=== PATIENT | female | born 1980 | race Caucasian/White ===

== ENCOUNTER 2019-01-06 02:38 | Emergency (ER) | payer MEDICAID ==
[2019-01-06 03:34] LABS: ANION GAP 13.4; CHLORIDE,CL 102 mmol/L (101-111); SODIUM,NA 135 mmol/L (135-145)
[2019-01-06] MEDS ORDERED: Sodium Chloride 0.9% 1,000 ML IV ONE (03:40)
--- NOTE | 2019-01-06 04:48 | EDM.PDOC ---
<Roxanne Guzman - Last Filed: 01/06/19 07:00> ED HPI GENERAL MEDICAL PROBLEM - General Chief Complaint: General Stated Complaint: FACE IS SWOLLEN AND LIGHT HEADED Time Seen by Provider: 01/06/19 03:00 Source of Information: Reports: Patient History Limitations: Reports: No Limitations - History of Present Illness INITIAL COMMENTS - FREE TEXT/NARRATIVE: ED with c/o facial swelling starting today on left side, tonight while finishing work got dizzy and had to sit down, later, felt dizzy while driving home. No recent fever or chills. No cough or cold symptoms, No dental pain. Has been anemic in past from heavy periods. LMP one week ago. - Related Data Allergies Allergy/AdvReac Type Severity Reaction Status Date / Time amoxicillin Allergy Other Verified 01/06/19 06:48 Sulfa (Sulfonamide Allergy Swelling Verified 01/06/19 06:48 Antibiotics) Home Meds: Home Meds . [No Known Home Meds] 01/06/19 [History] Past Medical History Genitourinary History: Reports: Other (See Below) Other Genitourinary History: Pt reports "a kidney issue" when she was a kid. 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 Social & Family History - Tobacco Use Smoking Status *Q: Current Every Day Smoker Years of Tobacco use: 20 Packs/Tins Daily: 0.5 - Caffeine Use Caffeine Use: Reports: Tea Caffeine Use Comment: 2 Herbalife teas daily. - Recreational Drug Use Recreational Drug Use: No ED ROS GENERAL - Review of Systems Review Of Systems: ROS reveals no pertinent complaints other than HPI. Constitutional: Denies: Fever, Chills, Weakness HEENT: Denies: Sinus Problem ED EXAM, GENERAL - Physical Exam Exam: See Below Exam Limited By: No Limitations General Appearance: Alert, Anxious, Mild Distress Eye Exam: Bilateral Eye: EOMI, Normal Fundi, PERRL Ears: Normal External Exam Ear Exam: Bilateral Ear: Auricle Normal, Canal Normal, TM normal Nose: Normal Inspection Throat/Mouth: Normal Inspection Head: Atraumatic, Normocephalic, Facial Swelling (left lower orbital and cheek) Neck: Normal Inspection Respiratory/Chest: No Respiratory Distress, Lungs Clear, Normal Breath Sounds Cardiovascular: Normal Peripheral Pulses, Regular Rate, Rhythm, Tachycardia GI/Abdominal: Normal Bowel Sounds Back Exam: Normal Inspection Extremities: Normal Inspection, Normal Range of Motion Neurological: Alert, Oriented, Normal Cognition, Normal Gait, Normal Reflexes Psychiatric: Normal Affect Skin Exam: Warm, Dry, Intact, Normal Color Course - Vital Signs Last Recorded V/S: Last Vital Signs Temp 37.0 C 01/06/19 09:00 Pulse 96 01/06/19 09:00 Resp 20 01/06/19 09:00 BP 107/66 01/06/19 09:00 Pulse Ox 93 L 01/06/19 07:01 Orthostatic Blood Pressure [ 148/94 Supine] - Orders/Labs/Meds Orders: Active Orders 24 hr Category Date Time Status Orthostatic Vital Signs [RC] ASDIRECTED Care 01/06/19 03:01 Active Labs: Laboratory Tests 01/06/19 01/06/19 01/06/19 Range/Units 03:08 03:08 03:08 WBC 9.8 (5.0-10.0) 10^3/uL RBC 4.89 (4.2-5.4) 10^6/uL Hgb 7.0 L (12.0-16.0) g/dL Hct 25.2 L (37.0-47.0) % MCV 51.5 L (80-100) fL MCH 14.3 L (27.0-34.0) pg MCHC 27.8 L (33.0-35.0) g/dL Plt Count 319 (150-450) 10^3/uL Neut % (Auto) 70.0 (42.2-75.2) % Lymph % (Auto) 21.2 (20.5-50.1) % [place] % (Auto) 6.9 (2-8) % Eos % (Auto) 1.5 (1.0-3.0) % Baso % (Auto) 0.4 (0.0-1.0) % Sodium 135 (135-145) mmol/L Potassium 3.4 L (3.6-5.0) mmol/L Chloride 102 (101-111) mmol/L Carbon Dioxide 23.0 (21.0-31.0) mmol/L Anion Gap 13.4 BUN 12 (7-18) mg/dL Creatinine 0.7 (0.6-1.3) mg/dL Est Cr Clr Drug Dosing 109.92 mL/min Estimated GFR (MDRD) > 60 BUN/Creatinine Ratio 17.14 Glucose 102 (74-105) mg/dL Calcium 8.7 (8.4-10.2) mg/dl Total Bilirubin 0.7 (0.2-1.0) mg/dL AST 22 (10-42) IU/L ALT 18 (10-60) IU/L Alkaline Phosphatase 52 (42-121) IU/L Total Protein 7.3 (6.7-8.2) g/dl Albumin 4.1 (3.2-5.5) g/dl Globulin 3.2 Albumin/Globulin Ratio 1.28 TSH, Ultra Sensitive 1.68 (0.45-5.33) uIu/mL HCG, Qual Negative Blood Type Gel Antibody Screen Crossmatch 01/06/19 Range/Units 03:18 WBC (5.0-10.0) 10^3/uL RBC (4.2-5.4) 10^6/uL Hgb (12.0-16.0) g/dL Hct (37.0-47.0) % MCV (80-100) fL MCH (27.0-34.0) pg MCHC (33.0-35.0) g/dL Plt Count (150-450) 10^3/uL Neut % (Auto) (42.2-75.2) % Lymph % (Auto) (20.5-50.1) % [place] % (Auto) (2-8) % Eos % (Auto) (1.0-3.0) % Baso % (Auto) (0.0-1.0) % Sodium (135-145) mmol/L Potassium (3.6-5.0) mmol/L Chloride (101-111) mmol/L Carbon Dioxide (21.0-31.0) mmol/L Anion Gap BUN (7-18) mg/dL Creatinine (0.6-1.3) mg/dL Est Cr Clr Drug Dosing mL/min Estimated GFR (MDRD) BUN/Creatinine Ratio Glucose (74-105) mg/dL Calcium (8.4-10.2) mg/dl Total Bilirubin (0.2-1.0) mg/dL AST (10-42) IU/L ALT (10-60) IU/L Alkaline Phosphatase (42-121) IU/L Total Protein (6.7-8.2) g/dl Albumin (3.2-5.5) g/dl Globulin Albumin/Globulin Ratio TSH, Ultra Sensitive (0.45-5.33) uIu/mL HCG, Qual Blood Type B POSITIVE Gel Antibody Screen Negative Crossmatch See Detail Meds: Medications Discontinued Medications Generic Name Dose Route Start Last Admin Trade Name Chavoq PRN Reason Stop Dose Admin Amoxicillin/Clavulanate Potassium 1 tab 01/06/19 06:07 01/06/19 06:49 Augmentin 875 Mg/125 Mg PO 01/06/19 06:08 Not Given ONETIME ONE Clindamycin HCl 300 mg 01/06/19 06:46 Cleocin PO 01/06/19 06:47 ONETIME ONE Sodium Chloride 1,000 mls @ 999 mls/hr 01/06/19 03:40 01/06/19 03:58 Normal Saline IV 01/06/19 04:40 999 mls/hr .BOLUS ONE Administration Departure - Departure Disposition: Home, Self-Care 01 Clinical Impression: Cellulitis, face Anemia Qualifiers: Anemia type: unspecified type Qualified Code(s): D64.9 - Anemia, unspecified - Discharge Information Instructions: Cellulitis, Adult, [id number], Blood Transfusion, Adult, Care After, [id number] Forms: ED Department Discharge Care Plan Goals: The patient was advised of the examination, lab and CT results. The patient was given 1 unit of blood for anemia while in the ED. The patient was given an oral dose of Clindamycin while in the ED for Cellulitis. The patient was discharged with a script for Clindamycin (150 mg) to take 2 by mouth every 6 hours for 10 days. The patient should follow-up with her primary care facility for continued evaluation and further management in approximately 1 week. If the patient has any additional symptoms or concerns, the patient should either return to the emergency department or visit her primary care facility. <Gabriel Smith - Last Filed: 01/06/19 09:47> Course - Re-Assessments/Exams Free Text/Narrative Re-Assessment/Exam: 01/06/19 09:36 Patient care was taken over at shift change. Reviewed assessment, lab and CT results. The patient was receiving 1 unit of blood at shift change for anemia. An order was placed for 300 mg of Clindamycin was placed for Cellulitis prior to my patient involvement. Departure - Departure Time of Disposition: 10:00 Condition: Fair - Discharge Information *PRESCRIPTION DRUG MONITORING PROGRAM REVIEWED*: Not Applicable *COPY OF PRESCRIPTION DRUG MONITORING REPORT IN PATIENT WILLIAMS: Not Applicable
[2019-01-06] MEDS ORDERED: Amoxicillin/Clavulanate K 875-125 MG Tab PO ONE (06:07)
[2019-01-06] MEDS ORDERED: Clindamycin HCl 150 MG Cap PO ONE (06:46)
== END 2019-01-06 10:07 | disposition home or self-care (01) ==
LOC: DL.ED 02:38
DX: L03.211 Cellulitis of face (principal); F17.210 Nicotine dependence, cigarettes, uncomplicated; Z88.0 Allergy status to penicillin; Z88.2 Allergy status to sulfonamides
CPT/HCPCS: 36415; 36430; 70450; 70486; 80053; 84443; 84703; 85025; 86850; 86900; 86901; 86920; 86922; 96360; 99284; A9270; J7030; P9016; 99283

== ENCOUNTER 2019-01-06 23:01 | Inpatient (IN) | payer MEDICAID ==
[2019-01-07 00:03] LABS: ANION GAP 11.5; CHLORIDE,CL 106 mmol/L (101-111); SODIUM,NA 138 mmol/L (135-145)
[2019-01-07] MEDS ORDERED: Ondansetron 4 MG/2 ML SDV IVPUSH PRN (00:42)
[2019-01-07] MEDS ORDERED: Zolpidem 5 MG Tab PO PRN (00:42)
--- NOTE | 2019-01-07 00:59 | PCM.HP ---
H&P History of Present Illness - General Date of Service: 01/07/19 Admit Problem/Dx: Admission Diagnosis/Problem Admission Diagnosis/Problem Cellulitis of face Source of Information: Patient History Limitations: Reports: No Limitations - History of Present Illness Initial Comments - Free Text/Narative: 38-year-old female with past medical history anemia, irregular menstrual periods , remote meth abuse who presented to emergency room for left facial swelling started last Saturday night and gradually got worse. Early Saturday morning she was feeling lightheaded and dizzy so she came to emergency room and she was found to have hemoglobin of 7. She was given IV antibiotic and prescription for antibiotics taken. However she said she slept all day and her facial swelling, redness, and pain was getting worse so she came back to emergency room. She denies fever or chills but admitted sweats. She moved from [place]. She said she is used to hemoglobin of 7, stating that she has aren't deficiency anemia and heavy periods. Her periods finished last and lasted for 6 days. She said her menstrual period is usually heavy. It comes every 4-6 weeks. Patient denies change in vision, pain with eye movement, runny nose, sore throat, difficulty breathing, difficulty swallowing except from difficulty completely opening the mouth due to pain, chest pain, abdominal pain, diarrhea, urinary symptoms, vaginal discharge, bruise, any other symptoms or concern Left Face/Facial Pain Score (Numeric/FACES): 5 - Related Data Allergies/Adverse Reactions: Allergies Allergy/AdvReac Type Severity Reaction Status Date / Time amoxicillin Allergy Other Verified 01/06/19 06:48 Sulfa (Sulfonamide Allergy Swelling Verified 01/06/19 06:48 Antibiotics) Home Medications: Home Meds . [No Known Home Meds] 01/06/19 [History] Past Medical History Genitourinary History: Reports: Other (See Below) Other Genitourinary History: Pt reports "a kidney issue" when she was a kid. 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 Social & Family History - Caffeine Use Caffeine Use: Reports: Tea Caffeine Use Comment: 2 Herbalife teas daily. H&P Review of Systems - Review of Systems: Review Of Systems: ROS reveals no pertinent complaints other than HPI. Exam - Exam Exam: See Below - Vital Signs Vital Signs: Last Vital Signs Temp 37.1 C 01/06/19 23:08 Pulse 94 01/06/19 23:08 Resp 18 01/06/19 23:08 BP 115/67 01/06/19 23:08 Pulse Ox 96 01/06/19 23:08 Weight: 72.393 kg - Exam General: Alert, Oriented, Cooperative. No: Mild Distress, Moderate Distress, Severe Distress, Sedated, Lethargic HEENT: Conjunctiva Clear, EOMI, Hearing Intact, Mucosa Moist & [place], Pupils Equal, Pupils Reactive, Other (Patient had significant left facial swelling, redness, and tenderness mostly in the cheek and extends to periorbital area. She has poor dentition and left upper molar caries and gingival swelling and tenderness. She is able to open her mouth about 1 finger and a half but not more due to pain. Her throat is patent. No stridor) Neck: Supple, Trachea Midline Lungs: Clear to Auscultation, Normal Respiratory Effort. No: Decreased Breath Sounds Cardiovascular: Regular Rate, Regular Rhythm GI/Abdominal Exam: Normal Bowel Sounds, Soft, Non-Tender, No Organomegaly, No Distention (Female) Exam: Deferred Rectal (Female) Exam: Deferred Back Exam: Normal Inspection, Full Range of Motion Extremities: Normal Inspection, Normal Range of Motion, Non-Tender, No Pedal Edema, Normal Capillary Refill Skin: Warm, Dry, Intact Neurological: Cranial Nerves Intact Neuro Extensive - Mental Status: Alert, Oriented x3, Normal Mood/Affect Psychiatric: Alert, Normal Affect, Normal Mood - Patient Data Lab Results Last 24 hrs: Laboratory Results - last 24 hr 01/06/19 01/06/19 01/06/19 Range/Units 23:34 23:34 23:34 WBC 10.1 H (5.0-10.0) 10^3/uL RBC 5.30 (4.2-5.4) 10^6/uL Hgb 8.5 L D (12.0-16.0) g/dL Hct 29.3 L (37.0-47.0) % MCV 55.3 L D (80-100) fL MCH 16.0 L (27.0-34.0) pg MCHC 29.0 L (33.0-35.0) g/dL Plt Count 259 (150-450) 10^3/uL Neut % (Auto) 68.2 (42.2-75.2) % Lymph % (Auto) 21.5 (20.5-50.1) % [place] % (Auto) 8.8 H (2-8) % Eos % (Auto) 1.2 (1.0-3.0) % Baso % (Auto) 0.3 (0.0-1.0) % Sodium 138 (135-145) mmol/L Potassium 3.5 L (3.6-5.0) mmol/L Chloride 106 (101-111) mmol/L Carbon Dioxide 24.0 (21.0-31.0) mmol/L Anion Gap 11.5 BUN 8 (7-18) mg/dL Creatinine 0.6 (0.6-1.3) mg/dL Est Cr Clr Drug Dosing 119.01 mL/min Estimated GFR (MDRD) > 60 BUN/Creatinine Ratio 13.33 Glucose 108 H (74-105) mg/dL Lactic Acid 0.7 (0.5-2.2) mmol/L Calcium 8.6 (8.4-10.2) mg/dl Total Bilirubin 0.7 (0.2-1.0) mg/dL AST 18 (10-42) IU/L ALT 15 (10-60) IU/L Alkaline Phosphatase 51 (42-121) IU/L C-Reactive Protein (0.0-1.3) mg/dL Total Protein 6.9 (6.7-8.2) g/dl Albumin 3.7 (3.2-5.5) g/dl Globulin 3.2 Albumin/Globulin Ratio 1.16 01/06/ Range/Units 23:34 WBC (5.0-10.0) 10^3/uL RBC (4.2-5.4) 10^6/uL Hgb (12.0-16.0) g/dL Hct (37.0-47.0) % MCV (80-100) fL MCH (27.0-34.0) pg MCHC (33.0-35.0) g/dL Plt Count (150-450) 10^3/uL Neut % (Auto) (42.2-75.2) % Lymph % (Auto) (20.5-50.1) % [place] % (Auto) (2-8) % Eos % (Auto) (1.0-3.0) % Baso % (Auto) (0.0-1.0) % Sodium (135-145) mmol/L Potassium (3.6-5.0) mmol/L Chloride (101-111) mmol/L Carbon Dioxide (21.0-31.0) mmol/L Anion Gap BUN (7-18) mg/dL Creatinine (0.6-1.3) mg/dL Est Cr Clr Drug Dosing mL/min Estimated GFR (MDRD) BUN/Creatinine Ratio Glucose (74-105) mg/dL Lactic Acid (0.5-2.2) mmol/L Calcium (8.4-10.2) mg/dl Total Bilirubin (0.2-1.0) mg/dL AST (10-42) IU/L ALT (10-60) IU/L Alkaline Phosphatase (42-121) IU/L C-Reactive Protein 1.3 (0.0-1.3) mg/dL Total Protein (6.7-8.2) g/dl Albumin (3.2-5.5) g/dl Globulin Albumin/Globulin Ratio Result Diagrams: 01/06/19 23:34 01/06/19 23:34 - Problem List (1) Irregular menses SNOMED Code(s): 14744200 ICD Code: N92.6 - IRREGULAR MENSTRUATION, UNSPECIFIED Status: Acute Current Visit: Yes (2) Anemia SNOMED Code(s): 667773873 ICD Code: D64.9 - ANEMIA, UNSPECIFIED Status: Acute Priority: High Current Visit: No Qualifiers: Anemia type: unspecified type Qualified Code(s): D64.9 - Anemia, unspecified (3) Cellulitis, face SNOMED Code(s): 675723738 ICD Code: L03.211 - CELLULITIS OF FACE Status: Acute Priority: High Current Visit: No Problem List Initiated/Reviewed/Updated: Yes Orders Last 24hrs: Active Orders 24 hr Category Date Time Status Admission Diagnosis [ADT] Stat ADT 01/07/19 00:22 Ordered Admission Status [Patient Status] [ADT] Routine ADT 01/07/19 00:22 Active Intake and Output [RC] QSHIFT Care 01/07/19 00:42 Active Notify Provider Vital Signs [RC] ASDIRECTED Care 01/07/19 00:42 Active Oxygen Therapy [RC] PRN Care 01/07/19 00:42 Active Up ad Lorie [RC] ASDIRECTED Care 01/07/19 00:42 Active VTE/DVT Education [RC] PER UNIT ROUTINE Care 01/07/19 00:42 Active Vital Signs [RC] Q4H Care 01/07/19 00:42 Active Regular Diet [DIET] Diet 01/07/19 Breakfast Active BASIC METABOLIC PANEL,BMP [CHEM] AM Lab 01/07/19 05:11 Ordered C-REACTIVE PROTEIN [REF] AM Lab 01/07/19 05:11 Ordered CBC WITH AUTO DIFF [HEME] AM Lab 01/07/19 05:11 Ordered CULTURE BLOOD [BC] Stat Lab 01/06/19 23:34 Received CULTURE BLOOD [BC] Stat Lab 01/07/19 00:46 Ordered HCG QUALITATIVE,URINE [URCHEM] Stat Lab 01/07/19 00:42 Ordered Acetaminophen [Tylenol] Med 01/07/19 00:42 Ordered 650 mg PO Q4H PRN Acetaminophen/HYDROcodone [[place] 325-10 MG] Med 01/07/19 00:42 Ordered 1 tab PO Q4H PRN Clindamycin Phosphate [Cleocin] 600 mg Med 01/07/19 01:00 Ordered Sodium Chloride 0.9% [Normal Saline] 100 ml IV Q6H Heparin Sodium Med 01/07/19 06:00 Ordered 5,000 units SUBCUT Q8HR Morphine Med 01/07/19 00:42 Ordered 2 mg IVPUSH Q2H PRN Ondansetron [Zofran] Med 01/07/19 00:42 Ordered 4 mg IVPUSH Q6H PRN Sodium Chloride 0.9% [Normal Saline] 1,000 ml Med 01/07/19 00:45 Ordered IV ASDIRECTED Zolpidem [Ambien] Med 01/07/19 00:42 Ordered 5 mg PO BEDTIME PRN Resuscitation Status Routine Resus Stat 01/07/19 00:42 Ordered Medication Orders Acetaminophen (Tylenol) 650 mg PO Q4H PRN PRN Reason: Pain (Mild 1-3)/fever Hydrocodone Bitart/Acetaminophen ([place] 325-10 Mg) 1 tab PO Q4H PRN PRN Reason: Pain (moderate 4-6) Heparin Sodium (Porcine) (Heparin Sodium) 5,000 units SUBCUT Q8HR [facility] Clindamycin Phosphate 600 mg/ (Sodium Chloride) 104 mls @ 200 mls/hr IV Q6H [facility] Sodium Chloride (Normal Saline) 1,000 mls @ 125 mls/hr IV ASDIRECTED [facility] Stop: 01/08/19 08:44 Morphine Sulfate (Morphine) 2 mg IVPUSH Q2H PRN PRN Reason: Pain (severe 7-10) Ondansetron HCl (Zofran) 4 mg IVPUSH Q6H PRN PRN Reason: Nausea/Vomiting Zolpidem Tartrate (Ambien) 5 mg PO BEDTIME PRN PRN Reason: Sleep Assessment/Plan Comment:: 38-year-old female with past medical history anemia, irregular menstrual periods , remote meth abuse who presented to emergency room for left facial swelling started last Saturday night and gradually got worse. Early today she was found to have hemoglobin of 7 and had 1 unit of RBC in ER and was sent home on antibiotics for her facial infection but she did not take it because she was not feeling well. On admission her WBC 10.1 K. Heart rate 94. Temperature blood pressure normal. #Facial cellulitis Most likely from dental infection -Clindamycin 600 mg IV every 6 hours. Patient is allergic to -Full liquid diet -1 blood culture ordered emergency room. I'm ordering another blood culture #Dental caries -Patient was advised to follow-up with the dentist as soon as possible after discharge #Anemia No active bleeding -Status post 1 unit of RBC on 01/06/19 -Monitor hemoglobin -I order reticulocyte, iron panel, folate and vitamin B-12 levels, haptoglobin, LDH. She was advised to let her primary care doctor know about following up with the blood work in case we don't get the results back before she gets discharged -I advised patient to follow-up with primary care provider and see lithoplate maker. She denies seeing lithoplate maker in the past #Irregular menses Urine test negative earlier today. -We discussed the need to follow up with truck railroad and bus motor mechanic as soon as possible after discharge #History of meth use -Urine drug screen ordered #Tobacco abuse Patient smokes half pack per day. She was counseled to quit smoking and discussed smoking cessation with the family care provider. She declines nicotine patch at this time DVT ppx: heparin Code status: Full
[2019-01-07] MEDS: Sodium Chloride 0.9% 1,000 ML IV SCH ×2 (01:54→10:58)
[2019-01-07] MEDS: Clindamycin Phosphate 600 MG in Sodium Chloride 0.9% 100 ML IV SCH ×5 (01:55→23:52)
[2019-01-07] MEDS: Morphine 2 MG/ML Syringe IVPUSH PRN ×2 (01:56→06:38)
--- NOTE | 2019-01-07 02:12 | EDM.PDOC ---
ED HPI GENERAL MEDICAL PROBLEM - General Chief Complaint: General Stated Complaint: FACE IS DROOPING Time Seen by Provider: 01/06/19 23:10 Source of Information: Reports: Patient History Limitations: Reports: No Limitations - History of Present Illness INITIAL COMMENTS - FREE TEXT/NARRATIVE: ED with c/o increased facial swelling. Slept most of today, poor appetited, Now some pain abdove left front teeth. Unsure if fever. 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 Patient seen early am hours with onset of painless facial swelling and found to have low Hgb. Recieved antibiotic and tranfused 1 unit PRBC. Left Face/Facial Pain Score (Numeric/FACES): 5 - Related Data Allergies Allergy/AdvReac Type Severity Reaction Status Date / Time amoxicillin Allergy Other Verified 01/06/19 06:48 Sulfa (Sulfonamide Allergy Swelling Verified 01/06/19 06:48 Antibiotics) Home Meds: Home Meds . [No Known Home Meds] 01/06/19 [History] Past Medical History Genitourinary History: Reports: Other (See Below) Other Genitourinary History: Pt reports "a kidney issue" when she was a kid. FLIGHT FOLLOWER History: Reports: Other (See Below) Other FLIGHT FOLLOWER History: Excessive vaginal bleeding leading to anemia. Social & Family History - Family History Family Medical History: Noncontributory - Tobacco Use Smoking Status *Q: Never Smoker Second Hand Smoke Exposure: No - Caffeine Use Caffeine Use: Reports: Tea Caffeine Use Comment: 2 Herbalife teas daily. - Recreational Drug Use Recreational Drug Use: No ED ROS GENERAL - Review of Systems Review Of Systems: ROS reveals no pertinent complaints other than HPI. ED EXAM, GENERAL - Physical Exam Exam: See Below Exam Limited By: No Limitations General Appearance: Alert, Moderate Distress Eye Exam: Bilateral Eye: EOMI, PERRL Ears: Normal External Exam Ear Exam: Bilateral Ear: TM normal Nose: Normal Inspection Throat/Mouth: Other (dentation fair, moderate pain with plapation over left front and left inscisor) Head: Atraumatic, Normocephalic Neck: Normal Inspection, Full Range of Motion Respiratory/Chest: No Respiratory Distress, Lungs Clear, Normal Breath Sounds Cardiovascular: Normal Peripheral Pulses, Regular Rate, Rhythm GI/Abdominal: Normal Bowel Sounds, Soft, Non-Tender, No Organomegaly, No Distention Back Exam: Normal Inspection, Full Range of Motion Extremities: Normal Inspection, Normal Range of Motion, Non-Tender, No Pedal Edema, Normal Capillary Refill Neurological: Alert, Oriented, Normal Cognition Psychiatric: Normal Affect, Normal Mood Skin Exam: Warm, Dry, Intact, Normal Color Course - Vital Signs Last Recorded V/S: Last Vital Signs Temp 98.5 F 01/08/19 00:03 Pulse 79 01/08/19 00:03 Resp 18 01/08/19 00:03 BP 113/76 01/08/19 00:03 Pulse Ox 96 01/08/19 00:42 - Orders/Labs/Meds Orders: Medication Orders Acetaminophen (Tylenol) 650 mg PO Q4H PRN PRN Reason: Pain (Mild 1-3)/fever Hydrocodone Bitart/Acetaminophen ([place] 325-10 Mg) 1 tab PO Q4H PRN PRN Reason: Pain (moderate 4-6) Last Admin: 01/07/19 21:20 Dose: 1 tab Admin: 01/07/19 17:32 Dose: 1 tab Heparin Sodium (Porcine) (Heparin Sodium) 5,000 units SUBCUT Q8HR [facility] Last Admin: 01/08/19 05:58 Dose: Not Given Admin: 01/07/19 21:09 Dose: Not Given Admin: 01/07/19 13:18 Dose: Not Given Admin: 01/07/19 06:39 Dose: 5,000 units Sodium Chloride (Normal Saline) 1,000 mls @ 125 mls/hr IV ASDIRECTED [facility] Stop: 01/08/19 08:44 Last Infusion: 01/07/19 18:58 Dose: 125 mls/hr Admin: 01/07/19 10:58 Dose: 125 mls/hr Infusion: 01/07/19 10:48 Dose: 125 mls/hr Admin: 01/07/19 01:54 Dose: 125 mls/hr Clindamycin Phosphate 600 mg/ (Sodium Chloride) 104 mls @ 200 mls/hr IV Q6HR [facility] Last Admin: 01/08/19 05:54 Dose: 200 mls/hr Admin: 01/07/19 23:52 Dose: 200 mls/hr Admin: 01/07/19 17:33 Dose: 200 mls/hr Admin: 10/16/19 13:17 Dose: 200 mls/hr Morphine Sulfate (Morphine) 2 mg IVPUSH Q2H PRN PRN Reason: Pain (severe 7-10) Last Admin: 01/08/19 02:09 Dose: 2 mg Admin: 01/07/19 06:38 Dose: 2 mg Admin: 01/07/19 01:56 Dose: 2 mg Ondansetron HCl (Zofran) 4 mg IVPUSH Q6H PRN PRN Reason: Nausea/Vomiting Zolpidem Tartrate (Ambien) 5 mg PO BEDTIME PRN PRN Reason: Sleep Last Admin: 01/07/19 01:56 Dose: 5 mg Labs: Laboratory Tests 01/06/19 01/06/19 01/06/19 Range/Units 23:34 23:34 23:34 WBC 10.1 H (5.0-10.0) 10^3/uL RBC 5.30 (4.2-5.4) 10^6/uL Hgb 8.5 L D (12.0-16.0) g/dL Hct 29.3 L (37.0-47.0) % MCV 55.3 L D (80-100) fL MCH 16.0 L (27.0-34.0) pg MCHC 29.0 L (33.0-35.0) g/dL Plt Count 259 (150-450) 10^3/uL Neut % (Auto) 68.2 (42.2-75.2) % Lymph % (Auto) 21.5 (20.5-50.1) % Luna % (Auto) 8.8 H (2-8) % Eos % (Auto) 1.2 (1.0-3.0) % Baso % (Auto) 0.3 (0.0-1.0) % Sodium 138 (135-145) mmol/L Potassium 3.5 L (3.6-5.0) mmol/L Chloride 106 (101-111) mmol/L Carbon Dioxide 24.0 (21.0-31.0) mmol/L Anion Gap 11.5 BUN 8 (7-18) mg/dL Creatinine 0.6 (0.6-1.3) mg/dL Est Cr Clr Drug Dosing 119.01 mL/min Estimated GFR (MDRD) > 60 BUN/Creatinine Ratio 13.33 Glucose 108 H (74-105) mg/dL Lactic Acid 0.7 (0.5-2.2) mmol/L Calcium 8.6 (8.4-10.2) mg/dl Total Bilirubin 0.7 (0.2-1.0) mg/dL AST 18 (10-42) IU/L ALT 15 (10-60) IU/L Alkaline Phosphatase 51 (42-121) IU/L Lactate Dehydrogenase (91-180) IU/L C-Reactive Protein (0.0-1.3) mg/dL Total Protein 6.9 (6.7-8.2) g/dl Albumin 3.7 (3.2-5.5) g/dl Globulin 3.2 Albumin/Globulin Ratio 1.16 01/06/19 01/06/19 Range/Units 23:34 23:35 WBC (5.0-10.0) 10^3/uL RBC (4.2-5.4) 10^6/uL Hgb (12.0-16.0) g/dL Hct (37.0-47.0) % MCV (80-100) fL MCH (27.0-34.0) pg MCHC (33.0-35.0) g/dL Plt Count (150-450) 10^3/uL Neut % (Auto) (42.2-75.2) % Lymph % (Auto) (20.5-50.1) % Luna % (Auto) (2-8) % Eos % (Auto) (1.0-3.0) % Baso % (Auto) (0.0-1.0) % Sodium (135-145) mmol/L Potassium (3.6-5.0) mmol/L Chloride (101-111) mmol/L Carbon Dioxide (21.0-31.0) mmol/L Anion Gap BUN (7-18) mg/dL Creatinine (0.6-1.3) mg/dL Est Cr Clr Drug Dosing mL/min Estimated GFR (MDRD) BUN/Creatinine Ratio Glucose (74-105) mg/dL Lactic Acid (0.5-2.2) mmol/L Calcium (8.4-10.2) mg/dl Total Bilirubin (0.2-1.0) mg/dL AST (10-42) IU/L ALT (10-60) IU/L Alkaline Phosphatase (42-121) IU/L Lactate Dehydrogenase 123 (91-180) IU/L C-Reactive Protein 1.3 (0.0-1.3) mg/dL Total Protein (6.7-8.2) g/dl Albumin (3.2-5.5) g/dl Globulin Albumin/Globulin Ratio Meds: Medications Generic Name Dose Route Start Last Admin Trade Name Evangelista PRN Reason Stop Dose Admin Acetaminophen 650 mg 01/07/19 00:42 Tylenol PO Q4H PRN Pain (Mild 1-3)/fever Hydrocodone Bitart/Acetaminophen 1 tab 01/07/19 00:42 01/07/19 21:20 [place] 325-10 Mg PO 1 tab Q4H PRN Administration Pain (moderate 4-6) Heparin Sodium (Porcine) 5,000 units 01/07/19 06:00 01/08/19 05:58 Heparin Sodium SUBCUT Not Given Q8HR JANETTE Sodium Chloride 1,000 mls @ 125 mls/hr 01/07/19 00:45 01/07/19 18:58 Normal Saline IV 01/08/19 08:44 Infused ASDIRECTED JANETTE Infusion Clindamycin Phosphate 600 mg/ 104 mls @ 200 mls/hr 01/07/19 12:00 01/08/19 05 :54 Sodium Chloride IV 200 mls/hr Q6HR [facility]AN[facility]TE Administration Morphine Sulfate 2 mg 01/07/19 00:42 01/08/19 02:09 Morphine IVPUSH 2 mg Q2H PRN Administration Pain (severe 7-10) Ondansetron HCl 4 mg 01/07/19 00:42 Zofran IVPUSH Q6H PRN Nausea/Vomiting Zolpidem Tartrate 5 mg 01/07/19 00:42 01/07/19 01:56 Ambien PO 5 mg BEDTIME PRN Administration Sleep Discontinued Medications Generic Name Dose Route Start Last Admin Trade Name Evangelista PRN Reason Stop Dose Admin Clindamycin Phosphate 600 mg/ 104 mls @ 200 mls/hr 01/07/19 01:00 01/07/19 07 :12 Sodium Chloride IV 200 mls/hr Q6H JAN[facility]TE Administration - Re-Assessments/Exams Free Text/Narrative Re-Assessment/Exam: 01/08/19 06:28 Dr Gasca accepting patient for admission, dental abscess, facial swelling Departure - Departure Time of Disposition: 00:50 Disposition: Admitted As Inpatient 66 Condition: Good Clinical Impression: Dental abscess, Periorbital cellulitis of left eye Anemia Qualifiers: Anemia type: unspecified type Qualified Code(s): D64.9 - Anemia, unspecified - Discharge Information *PRESCRIPTION DRUG MONITORING PROGRAM REVIEWED*: No *COPY OF PRESCRIPTION DRUG MONITORING REPORT IN PATIENT WILLIAMS: No
[2019-01-07] MEDS: Heparin Sodium 5,000 Units/ML Vial SUBCUT SCH ×3 (06:39→21:09)
[2019-01-07 07:16] LABS: ANION GAP 11.5; CHLORIDE,CL 107 mmol/L (101-111); SODIUM,NA 138 mmol/L (135-145)
--- NOTE | 2019-01-07 13:13 | PCM.SN ---
- Free Text/Narrative Note: Patient stated that she is feeling the same. However on exam the patient redness slightly improved. 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 She wants to have soft food, not only for liquid. No acute distress and exam. She looks better than it on admission. We'll continue with the same plan and consider CT facial tomorrow if no significant improvement.
[2019-01-07] MEDS: Acetaminophen/HYDROcodone 325-10 MG Tab PO PRN ×2 (17:32→21:20)
[2019-01-08] MEDS: Morphine 2 MG/ML Syringe IVPUSH PRN ×2 (02:09→23:29)
[2019-01-08] MEDS: Clindamycin Phosphate 600 MG in Sodium Chloride 0.9% 100 ML IV SCH ×3 (05:54→17:26)
[2019-01-08] MEDS: Heparin Sodium 5,000 Units/ML Vial SUBCUT SCH ×3 (05:58→21:46)
[2019-01-08] MEDS ORDERED: Potassium Chloride 10 MEQ Tab.ER PO ONE (07:17)
[2019-01-08] MEDS: Acetaminophen 325 MG Tab PO PRN ×2 (09:19→15:09)
--- NOTE | 2019-01-08 10:47 | PCM.PN ---
- General Info Date of Service: 01/08/19 Admission Dx/Problem (Free Text): Admission Diagnosis/Problem Admission Diagnosis/Problem Cellulitis of face Subjective Update: Patient stated that she is still having facial pain. She denies fever, chills, nausea, vomiting, difficulty breathing, cough, abdominal pain, diarrhea, urinary symptoms, any other symptoms or concerns. Functional Status: Reports: Pain Controlled - Patient Data Vitals - Most Recent: Last Vital Signs Temp 37.3 C 01/08/19 08:00 Pulse 89 01/08/19 08:00 Resp 14 01/08/19 08:00 BP 109/63 01/08/19 08:00 Pulse Ox 97 01/08/19 08:00 Weight - Most Recent: 72.393 kg I&O - Last 24 Hours: Intake & Output 01/07/19 01/08/19 01/08/19 22:59 06:59 14:59 Intake Total 200 495 Balance 200 495 Lab Results Last 24 Hours: Laboratory Results - last 24 hr 01/07/19 01/07/19 01/07/19 Range/Units 06:18 06:18 06:18 Haptoglobin 204 (44-215) mg/dL Iron (35-145) ug/dL TIBC (261-478) ug/dL Unsaturated IBC (155-355) ug/dL Transferrin % Sat (20.0-50.0) % Ferritin (11-307) ng/mL Vitamin B12 473 (180-914) pg/mL Folate 6.1 ng/mL 01/07/19 Range/Units 06:18 Haptoglobin (44-215) mg/dL Iron <10 L (35-145) ug/dL TIBC N/a H (261-478) ug/dL Unsaturated IBC 340 (155-355) ug/dL Transferrin % Sat N/a H (20.0-50.0) % Ferritin 4 L (11-307) ng/mL Vitamin B12 (180-914) pg/mL Folate ng/mL Jack Results Last 24 Hours: Microbiology 01/07/19 01:15 Aerobic Blood Culture - Preliminary Blood NO GROWTH AFTER 1 DAY Anaerobic Blood Culture - Preliminary NO GROWTH AFTER 1 DAY 01/06/19 23:34 Aerobic Blood Culture - Preliminary Blood NO GROWTH AFTER 1 DAY Anaerobic Blood Culture - Preliminary NO GROWTH AFTER 1 DAY Med Orders - Current: Current Medications Acetaminophen (Tylenol) 650 mg PO Q4H PRN PRN Reason: Pain (Mild 1-3)/fever Last Admin: 01/08/19 09:19 Dose: 650 mg Hydrocodone Bitart/Acetaminophen ([place] 325-10 Mg) 1 tab PO Q4H PRN PRN Reason: Pain (moderate 4-6) Last Admin: 01/07/19 21:20 Dose: 1 tab Heparin Sodium (Porcine) (Heparin Sodium) 5,000 units SUBCUT Q8HR [facility] Last Admin: 01/08/19 05:58 Dose: Not Given Clindamycin Phosphate 600 mg/ (Sodium Chloride) 104 mls @ 200 mls/hr IV Q6HR [facility] Last Admin: 01/08/19 05:54 Dose: 200 mls/hr Morphine Sulfate (Morphine) 2 mg IVPUSH Q2H PRN PRN Reason: Pain (severe 7-10) Last Admin: 01/08/19 02:09 Dose: 2 mg Ondansetron HCl (Zofran) 4 mg IVPUSH Q6H PRN PRN Reason: Nausea/Vomiting Zolpidem Tartrate (Ambien) 5 mg PO BEDTIME PRN PRN Reason: Sleep Last Admin: 01/07/19 01:56 Dose: 5 mg Discontinued Medications Clindamycin Phosphate 600 mg/ (Sodium Chloride) 104 mls @ 200 mls/hr IV Q6H [facility] Last Admin: 01/07/19 07:12 Dose: 200 mls/hr Sodium Chloride (Normal Saline) 1,000 mls @ 125 mls/hr IV ASDIRECTED [facility] Stop: 01/08/19 08:44 Last Infusion: 01/07/19 18:58 Dose: Infused Potassium Chloride (Klor-Con 10) 20 meq PO ONETIME ONE Stop: 01/08/19 07:18 Last Admin: 01/08/19 09:18 Dose: 20 meq - Exam General: Alert, Oriented, Cooperative, No Acute Distress. No: Moderate Distress , Severe Distress, Sedated, Lethargic HEENT: Pupils Equal, Pupils Reactive, EOMI, Mucous Membr. Moist/[place], Other ( She is still have left facial swelling which is slightly improved. Facial erythema markedly improved. She is having induration at the left cheek medially. She is still limited on opening her jaw but slightly better than yesterday) Neck: Supple, Trachea Midline, No JVD Lungs: Clear to Auscultation, Normal Respiratory Effort. No: Decreased Breath Sounds, Crackles, Rales, Rhonchi, Rub, Stridor, Wheezing Cardiovascular: Regular Rate, Regular Rhythm GI/Abdominal Exam: Normal Bowel Sounds, Soft, Non-Tender, No Organomegaly, No Distention, No Abnormal Bruit, No Mass. No: Guarding, Rigid, Rebound, Tender (Female) Exam: Deferred Back Exam: Normal Inspection, Full Range of Motion Extremities: Normal Inspection, Normal Range of Motion, Non-Tender, No Pedal Edema, Normal Capillary Refill Skin: Warm, Dry, Intact Wound/Incisions: Healing Well Neurological: No New Focal Deficit Psy/Mental Status: Alert, Normal Affect, Normal Mood - Problem List & Annotations (1) Irregular menses SNOMED Code(s): 23058821 Code(s): N92.6 - IRREGULAR MENSTRUATION, UNSPECIFIED Status: Acute Current Visit: Yes (2) Anemia SNOMED Code(s): 558963680 Code(s): D64.9 - ANEMIA, UNSPECIFIED Status: Acute Priority: High Current Visit: Yes Qualifiers: Anemia type: unspecified type Qualified Code(s): D64.9 - Anemia, unspecified (3) Cellulitis, face SNOMED Code(s): 138181918 Code(s): L03.211 - CELLULITIS OF FACE Status: Acute Priority: High Current Visit: No - Problem List Review Problem List Initiated/Reviewed/Updated: Yes - My Orders Last 24 Hours: My Active Orders 01/07/19 12:00 Clindamycin Phosphate [Cleocin] 600 mg Sodium Chloride 0.9% [Normal Saline] 100 ml IV Q6HR 01/07/19 Lunch Soft Diet [DIET] 01/08/19 10:14 Max Facial Sinus w Cont [CT] Routine - Plan Plan:: 38-year-old female with past medical history anemia, irregular menstrual periods , remote meth abuse who presented to emergency room for left facial swelling started last Saturday night and gradually got worse. Early today she was found to have hemoglobin of 7 and had 1 unit of RBC in ER and was sent home on antibiotics for her facial infection but she did not take it because she was not feeling well. On admission her WBC 10.1 K. Heart rate 94. Temperature blood pressure normal. #Facial cellulitis Most likely from dental infection -Continue Clindamycin 600 mg IV every 6 hours. Patient is allergic to -Soft diet -2 blood culture negative to date -Ordered CT maxillofacial with contrast #Dental caries -Patient was advised to follow-up with the dentist as soon as possible after discharge #Anemia No active bleeding -Status post 1 unit of RBC on 01/06/19 -Monitor hemoglobin -Iron level, ferritin level, TIBC are markedly low. However Reticulocyte, haptoglobin, folate, vitamin B-12 level, LDH are all within normal limit. -I discussed with patient oral versus IV iron treatment. Patient stated that she is aware that she should be on iron but she has not taken iron for a long time. She said she is just busy. I discussed benefits and risks of IV iron infusion including but not limited to fever, body aches, muscle aches, headache , anaphylactic reaction which could lead to . I discussed the alternative which would be oral iron supplement. Patient stated she will read more about IV iron therapy and let me know about her decision later. -I advised patient to follow-up with primary care provider and see blue leather sorter. She denies seeing blue leather sorter in the past #Hypokalemia Potassium 3.5 -Potassium chloride 40 mEq orally ordered #Irregular menses Urine test negative earlier today. -We discussed the need to follow up with cfd engineer as soon as possible after discharge #History of meth use -Urine drug screen was positive only to opiates which could be from what she was given in the hospital/ER #Tobacco abuse Patient smokes half pack per day. She was counseled to quit smoking and discussed smoking cessation with the family care provider. She declines nicotine patch at this time DVT ppx: heparin Code status: Full
[2019-01-08] MEDS ORDERED: Iopamidol 612 MG/ML 100 ML Bottle IVPUSH ONE (12:24)
[2019-01-08] MEDS: Acetaminophen/HYDROcodone 325-10 MG Tab PO PRN ×2 (15:19→20:46)
[2019-01-09] MEDS: Clindamycin Phosphate 600 MG in Sodium Chloride 0.9% 100 ML IV SCH ×4 (00:07→19:35)
[2019-01-09] MEDS: Acetaminophen/HYDROcodone 325-10 MG Tab PO PRN ×2 (00:50→06:34)
[2019-01-09] MEDS: Heparin Sodium 5,000 Units/ML Vial SUBCUT SCH ×3 (06:33→22:04)
[2019-01-09 07:43] LABS: ANION GAP 14.9; CHLORIDE,CL 107 mmol/L (101-111); SODIUM,NA 137 mmol/L (135-145)
[2019-01-09] MEDS ORDERED: Lidocaine 2% with EPINEPHrine 1:100,000 50 ML MDV INJECT ONE (09:25)
[2019-01-09] MEDS ORDERED: EPINEPHRINE PRN (11:00)
[2019-01-09] MEDS ORDERED: BUPIVACAINE PRN (11:00)
--- NOTE | 2019-01-09 12:02 | PCM.PRNOTE ---
- Free Text/Narrative Note: Preprocedure diagnosis: Left upper pre-dental abscess Postprocedure diagnosis: Same Anesthesia: Bupivacaine with epinephrine Physician performing the procedure: Dr. Gasca I discussed with patient benefit, risk, and alternatives of the procedure. Explained to patient that risks include but not limited to bleeding, nerve damage, spreading the infection and causing sepsis, not able to drain the abscess, Written consent was obtained to patient. Patient was fighting the needle so she only accepted one mL Bupivacaine with epinephrine topically. She felt numb in her left upper lip and part of her tongue. I was able to see the bulging abscess and feel fluctuation. I made 0.8 mm incision and about 1.5 mL of creamy thick pus came out. She had minimal bleeding. However no complications and patient tolerated procedure well. She was advised to avoid any kind of chewing so she does not chew her tongue or lip and avoid eating for the next few hours and start full liquid diet as that as she still numb in the left and the tongue.
--- NOTE | 2019-01-09 12:10 | PCM.PN ---
- General Info Date of Service: 01/09/19 Admission Dx/Problem (Free Text): Admission Diagnosis/Problem Admission Diagnosis/Problem Cellulitis of face Subjective Update: Patient stated that she is still having facial pain and the improvement in pain is only minimal. Swelling is still there but improved. She denies fever, chills , nausea, vomiting, difficulty breathing, cough, abdominal pain, diarrhea, urinary symptoms, any other symptoms or concerns. - Patient Data Vitals - Most Recent: Last Vital Signs Temp 36.5 C 01/09/19 08:00 Pulse 94 01/09/19 08:00 Resp 16 01/09/19 08:00 BP 104/68 01/09/19 08:00 Pulse Ox 95 01/09/19 08:00 Weight - Most Recent: 72.393 kg I&O - Last 24 Hours: Intake & Output 01/08/19 01/09/19 01/09/19 22:59 06:59 14:59 Intake Total 100 200 Balance 100 200 Lab Results Last 24 Hours: Laboratory Results - last 24 hr 01/09/19 01/09/19 Range/Units 06:30 07:30 WBC 10.4 H (5.0-10.0) 10^3/uL RBC 5.29 (4.2-5.4) 10^6/uL Hgb 8.5 L (12.0-16.0) g/dL Hct 29.1 L (37.0-47.0) % MCV 55.0 L (80-100) fL MCH 16.1 L (27.0-34.0) pg MCHC 29.2 L (33.0-35.0) g/dL Plt Count 258 (150-450) 10^3/uL Neut % (Auto) 80.7 H (42.2-75.2) % Lymph % (Auto) 11.3 L (20.5-50.1) % [place] % (Auto) 7.2 (2-8) % Eos % (Auto) 0.4 L (1.0-3.0) % Baso % (Auto) 0.4 (0.0-1.0) % Sodium 137 (135-145) mmol/L Potassium 4.9 (3.6-5.0) mmol/L Chloride 107 (101-111) mmol/L Carbon Dioxide 20.0 L (21.0-31.0) mmol/L Anion Gap 14.9 BUN 7 (7-18) mg/dL Creatinine 0.6 (0.6-1.3) mg/dL Est Cr Clr Drug Dosing 132.86 mL/min Estimated GFR (MDRD) > 60 Glucose 80 (74-105) mg/dL Calcium 8.7 (8.4-10.2) mg/dl Jack Results Last 24 Hours: Microbiology 01/07/19 01:15 Aerobic Blood Culture - Preliminary Blood NO GROWTH AFTER 2 DAYS Anaerobic Blood Culture - Preliminary NO GROWTH AFTER 2 DAYS 01/06/19 23:34 Aerobic Blood Culture - Preliminary Blood NO GROWTH AFTER 2 DAYS Anaerobic Blood Culture - Preliminary NO GROWTH AFTER 2 DAYS Med Orders - Current: Current Medications Acetaminophen (Tylenol) 650 mg PO Q4H PRN PRN Reason: Pain (Mild 1-3)/fever Last Admin: 01/08/19 15:09 Dose: 650 mg Hydrocodone Bitart/Acetaminophen ([place] 325-10 Mg) 1 tab PO Q4H PRN PRN Reason: Pain (moderate 4-6) Last Admin: 01/09/19 06:34 Dose: 1 tab Heparin Sodium (Porcine) (Heparin Sodium) 5,000 units SUBCUT Q8HR [facility] Last Admin: 01/09/19 06:33 Dose: Not Given Clindamycin Phosphate 600 mg/ (Sodium Chloride) 104 mls @ 200 mls/hr IV Q6HR [facility] Last Admin: 01/09/19 05:49 Dose: 200 mls/hr Morphine Sulfate (Morphine) 2 mg IVPUSH Q2H PRN PRN Reason: Pain (severe 7-10) Last Admin: 01/08/19 23:29 Dose: 2 mg Bupivicaine 0.5%/Epinephrine 1:200, 000 [Vivacaine] Inj 0 each .XX ASDIRECTED PRN PRN Reason: local anesthesia/analgesia Last Admin: 01/09/19 11:42 Dose: 2 each Ondansetron HCl (Zofran) 4 mg IVPUSH Q6H PRN PRN Reason: Nausea/Vomiting Sodium Chloride (Saline Flush) 10 ml FLUSH ASDIRECTED PRN PRN Reason: Keep Vein Open Zolpidem Tartrate (Ambien) 5 mg PO BEDTIME PRN PRN Reason: Sleep Last Admin: 10/16/19 01:56 Dose: 5 mg Discontinued Medications Clindamycin Phosphate 600 mg/ (Sodium Chloride) 104 mls @ 200 mls/hr IV Q6H [facility] Last Admin: 01/07/19 07:12 Dose: 200 mls/hr Sodium Chloride (Normal Saline) 1,000 mls @ 125 mls/hr IV ASDIRECTED [facility] Stop: 01/08/19 08:44 Last Infusion: 01/07/19 18:58 Dose: Infused Iopamidol (Isovue-300 (61%)) 100 ml IVPUSH ONETIME ONE Stop: 01/08/19 12:25 Last Admin: 01/08/19 12:25 Dose: 100 ml Lidocaine/Epinephrine (Xylocaine 2% With Epinephrine 1:100,000) 5 ml INJECT ONETIME ONE Stop: 01/09/19 09:26 Last Admin: 01/09/19 10:50 Dose: Not Given Potassium Chloride (Klor-Con 10) 20 meq PO ONETIME ONE Stop: 01/08/19 07:18 Last Admin: 01/08/19 09:18 Dose: 20 meq - Exam General: Alert, Oriented, Cooperative, No Acute Distress HEENT: Pupils Equal, Pupils Reactive, EOMI, Mucous Membr. Moist/[place], Other ( Facial swelling and redness improved. 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 She still have induration on left cheek. I was able to see bulging and he'll look fluctuation between left and bicuspid and cuspid) Neck: Supple, Trachea Midline, No JVD Lungs: Clear to Auscultation, Normal Respiratory Effort. No: Decreased Breath Sounds Cardiovascular: Regular Rate, Regular Rhythm GI/Abdominal Exam: Normal Bowel Sounds, Soft, Non-Tender, No Organomegaly, No Distention, No Mass Back Exam: Normal Inspection, Full Range of Motion. No: CVA Tenderness (L), CVA Tenderness (R) Extremities: Normal Inspection, Normal Range of Motion, Non-Tender, No Pedal Edema, Normal Capillary Refill Neurological: No New Focal Deficit Psy/Mental Status: Alert, Normal Affect, Normal Mood. No: Suicidal Ideation, Homicidal Ideation, Hallucinations, Withdrawal Symptoms - Problem List & Annotations (1) Irregular menses SNOMED Code(s): 32700870 Code(s): N92.6 - IRREGULAR MENSTRUATION, UNSPECIFIED Status: Acute Current Visit: Yes (2) Anemia SNOMED Code(s): 145289657 Code(s): D64.9 - ANEMIA, UNSPECIFIED Status: Acute Priority: High Current Visit: Yes Qualifiers: Anemia type: unspecified type Qualified Code(s): D64.9 - Anemia, unspecified (3) Cellulitis, face SNOMED Code(s): 806298771 Code(s): L03.211 - CELLULITIS OF FACE Status: Acute Priority: High Current Visit: No - Problem List Review Problem List Initiated/Reviewed/Updated: Yes - My Orders Last 24 Hours: My Active Orders 01/08/19 12:32 Sodium Chloride 0.9% [Saline Flush] 10 ml FLUSH ASDIRECTED PRN Saline Lock Insert [OM.PC] Routine 01/09/19 11:00 Non-Formulary Medication [NF Drug] 0 each .XX ASDIRECTED PRN - Plan Plan:: 38-year-old female with past medical history anemia, irregular menstrual periods , remote meth abuse who presented to emergency room for left facial swelling started last Saturday night and gradually got worse. Early today she was found to have hemoglobin of 7 and had 1 unit of RBC in ER and was sent home on antibiotics for her facial infection but she did not take it because she was not feeling well. On admission her WBC 10.1 K. Heart rate 94. Temperature blood pressure normal. #Facial cellulitis Most likely from dental infection. Status post I&D -Continue Clindamycin 600 mg IV every 6 hours. Patient is allergic to -Soft diet -2 blood culture negative to date -Repeated CT maxillofacial with contrast on 01/08/19 reported 1.1 cm periodontal abscesses #Periodontal abscess Status post I&D on 01/09/19. 1.5 mL of creamy thick pus came out. Prior to the procedure I give the patient the options to schedule appointment with dentist. She stated that she cannot make an appointment and she wanted me to do the I&D Continue IV antibiotics for at least one day. Then if significant improvement tomorrow will change to oral clindamycin #Dental caries -Patient was advised to follow-up with the dentist as soon as possible after discharge #Anemia No active bleeding -Status post 1 unit of RBC on 01/06/19 -Monitor hemoglobin -Iron level, ferritin level, TIBC are markedly low. However Reticulocyte, haptoglobin, folate, vitamin B-12 level, LDH are all within normal limit. -Start iron dextran IV 600 mg IV infusion. that all what we have available at the hospital. Patient does not want to wait until Saturday to get it. Also she did not reliable to do it as an outpatient. I would have give 1000 mg if we have enough medication. Patient was advised to follow-up with her primary care provider and decide whether she wants to take additional 400 or 500 mg IV dose or just be on oral iron. -I advised patient to follow-up with primary care provider and see network desktop support specialist. She denies seeing network desktop support specialist in the past #Hypokalemia Repleted #Irregular menses Urine test negative earlier today. -We discussed the need to follow up with rec therapist as soon as possible after discharge #History of meth use -Urine drug screen was positive only to opiates which could be from what she was given in the hospital/ER #Tobacco abuse Patient smokes half pack per day. She was counseled to quit smoking and discussed smoking cessation with the family care provider. She declines nicotine patch at this time DVT ppx: heparin Code status: Full
[2019-01-09] MEDS ORDERED: IRON DEXTRAN COMPLEX IV ONE ×2 (12:30→14:00)
[2019-01-09] MEDS ORDERED: SODIUM CHLORIDE 0.9% IV ONE ×2 (12:30→14:00)
[2019-01-09] MEDS: Acetaminophen 325 MG Tab PO PRN (18:05)
[2019-01-09] MEDS: Sodium Chloride 0.9% 10 ML Syringe FLUSH PRN ×4 (19:33→23:59)
[2019-01-10] MEDS: Sodium Chloride 0.9% 10 ML Syringe FLUSH PRN ×4 (00:36→12:16)
[2019-01-10] MEDS: Clindamycin Phosphate 600 MG in Sodium Chloride 0.9% 100 ML IV SCH ×4 (05:49→12:16)
[2019-01-10] MEDS: Heparin Sodium 5,000 Units/ML Vial SUBCUT SCH ×2 (05:53→16:00)
[2019-01-10 11:59] LABS: ANION GAP 13.3; CHLORIDE,CL 106 mmol/L (101-111); SODIUM,NA 137 mmol/L (135-145)
--- NOTE | 2019-01-10 14:34 | PCM.DCSUM1 ---
Discharge Summary - Hospital Course Free Text/Narrative:: 38-year-old female with past medical history of chronic anemia, irregular menstrual periods, remote meth abuse who presented to emergency room for left facial swelling started 5-6 days ago. Prior to this admission she presented to emergency room on the same day for lightheadedness and was found to have hemoglobin of 7. She was given 1 unit of blood transfusion and had maxillofacial CT showing cellulitis but no significant abscess. She was prescribed antibiotic and discharged home. She did not take her antibiotics and came back with worsening left facial swelling. She was admitted for IV clindamycin 600 mg every 8 hours On admission her WBC 10.1 K. Heart rate 94. Temperature blood pressure normal. Patient pain and swelling was not markedly improving although the redness improved. CT maxillofacial was done on 01/08 and reported periodontal abscess 1.1 cm at the level of the left upper bicuspid. Yesterday patient had I and D and 1.5 ml of any thick pus came out. Today patient said she feels almost 100% better. Her left facial pain almost resolved and swelling markedly improved. No left facial redness. No oral bleeding after procedure. Patient did not have fever throughout the stay. She received iron dextran 600 mg IV infusion yesterday (hospital had only total of 600 mg in a stock). I am sending patient on clindamycin 300 mg 3 times a day for 10 days and iron sulfate 324 milligrams twice a day. Her hemoglobin improved from 8.5 yesterday to 9 today. Patient was advised to follow-up with primary care provider and dentist in 1-2 weeks and with hematology and gynecology in 1-2 months. Diagnosis: Stroke: No - Discharge Data Discharge Date: 01/10/19 Discharge Disposition: Home, Self-Care 01 Condition: Good - Referral to Home Health Date of Face to Face Encounter: 01/10/19 Primary Care Physician: PCP None - Discharge Diagnosis/Problem(s) (1) Irregular menses SNOMED Code(s): 57756142 ICD Code: N92.6 - IRREGULAR MENSTRUATION, UNSPECIFIED Status: Chronic Current Visit: Yes (2) Anemia SNOMED Code(s): 027754365 ICD Code: D64.9 - ANEMIA, UNSPECIFIED Status: Chronic Priority: High Current Visit: Yes Qualifiers: Anemia type: unspecified type Qualified Code(s): D64.9 - Anemia, unspecified (3) Cellulitis, face SNOMED Code(s): 295020944 ICD Code: L03.211 - CELLULITIS OF FACE Status: Acute Priority: High Current Visit: No - Patient Instructions Diet: Heart Healthy Diet Activity: As Tolerated Showering/Bathing: May Shower Notify Provider of: Fever, Increased Pain, Swelling and Redness, Drainage, Nausea and/or Vomiting - Discharge Plan *PRESCRIPTION DRUG MONITORING PROGRAM REVIEWED*: No *COPY OF PRESCRIPTION DRUG MONITORING REPORT IN PATIENT WILLIAMS: No Prescriptions/Med Rec: Clindamycin HCl [Cleocin HCl] 300 mg PO TID 10 Days capsule Ferrous Sulfate 325 mg PO BIDMEALS #60 tab Home Medications: Home Meds Acetaminophen [Tylenol] 650 mg PO Q4H PRN tablet 01/10/19 [Rx] Clindamycin HCl [Cleocin HCl] 300 mg PO TID 10 Days capsule 01/10/19 [Rx] Ferrous Sulfate 325 mg PO BIDMEALS #60 tab 01/10/19 [Rx] Patient Handouts: Iron Sucrose injection Referrals: PCP,Unobtain [Ordering Only Provider] - - Discharge Summary/Plan Comment DC Time >30 min.: No - General Info Admission Dx/Problem (Free Text: Admission Diagnosis/Problem Admission Diagnosis/Problem Cellulitis of face Subjective Update: Patient stated that she is feeling much better today. She denies fever, chills, nausea, vomiting, difficulty breathing, cough, abdominal pain, diarrhea, urinary symptoms, any other symptoms or concerns. - Patient Data Vitals - Most Recent: Last Vital Signs Temp 36.7 C 01/10/19 10:18 Pulse 78 01/10/19 10:18 Resp 16 01/10/19 10:18 BP 108/55 L 01/10/19 10:18 Pulse Ox 93 L 01/10/19 10:18 Weight - Most Recent: 72.393 kg I&O - Last 24 hours: Intake & Output 01/09/19 01/10/19 01/10/19 22:59 06:59 14:59 Intake Total 876 647 200 Balance 876 647 200 Lab Results - Last 24 hrs: Laboratory Results - last 24 hr 01/10/19 01/10/19 Range/Units 11:32 11:32 WBC 6.2 (5.0-10.0) 10^3/uL RBC 5.64 H (4.2-5.4) 10^6/uL Hgb 9.0 L (12.0-16.0) g/dL Hct 30.6 L (37.0-47.0) % MCV 54.3 L (80-100) fL MCH 16.0 L (27.0-34.0) pg MCHC 29.4 L (33.0-35.0) g/dL Plt Count 280 (150-450) 10^3/uL Neut % (Auto) 70.3 (42.2-75.2) % Lymph % (Auto) 19.6 L (20.5-50.1) % [place] % (Auto) 8.4 H (2-8) % Eos % (Auto) 1.1 (1.0-3.0) % Baso % (Auto) 0.6 (0.0-1.0) % Sodium 137 (135-145) mmol/L Potassium 4.3 (3.6-5.0) mmol/L Chloride 106 (101-111) mmol/L Carbon Dioxide 22.0 (21.0-31.0) mmol/L Anion Gap 13.3 BUN 9 (7-18) mg/dL Creatinine 0.6 (0.6-1.3) mg/dL Est Cr Clr Drug Dosing 132.86 mL/min Estimated GFR (MDRD) > 60 Glucose 83 (74-105) mg/dL Calcium 9.2 (8.4-10.2) mg/dl RANDAL Results - Last 24 hrs: Microbiology 01/07/19 01:15 Aerobic Blood Culture - Preliminary Blood NO GROWTH AFTER 3 DAYS Anaerobic Blood Culture - Preliminary NO GROWTH AFTER 3 DAYS 01/06/19 23:34 Aerobic Blood Culture - Preliminary Blood NO GROWTH AFTER 3 DAYS Anaerobic Blood Culture - Preliminary NO GROWTH AFTER 3 DAYS Med Orders - Current: Current Medications Acetaminophen (Tylenol) 650 mg PO Q4H PRN PRN Reason: Pain (Mild 1-3)/fever Last Admin: 01/09/19 18:05 Dose: 650 mg Hydrocodone Bitart/Acetaminophen ([place] 325-10 Mg) 1 tab PO Q4H PRN PRN Reason: Pain (moderate 4-6) Last Admin: 01/09/19 06:34 Dose: 1 tab Heparin Sodium (Porcine) (Heparin Sodium) 5,000 units SUBCUT Q8HR [facility] Last Admin: 10/19/19 05:53 Dose: Not Given Clindamycin Phosphate 600 mg/ (Sodium Chloride) 104 mls @ 200 mls/hr IV Q6HR [facility] Last Admin: 01/10/19 12:16 Dose: 200 mls/hr Morphine Sulfate (Morphine) 2 mg IVPUSH Q2H PRN PRN Reason: Pain (severe 7-10) Last Admin: 01/08/19 23:29 Dose: 2 mg Ondansetron HCl (Zofran) 4 mg IVPUSH Q6H PRN PRN Reason: Nausea/Vomiting Sodium Chloride (Saline Flush) 10 ml FLUSH ASDIRECTED PRN PRN Reason: Keep Vein Open Last Admin: 01/10/19 12:16 Dose: 10 ml Zolpidem Tartrate (Ambien) 5 mg PO BEDTIME PRN PRN Reason: Sleep Last Admin: 01/07/19 01:56 Dose: 5 mg Discontinued Medications Clindamycin Phosphate 600 mg/ (Sodium Chloride) 104 mls @ 200 mls/hr IV Q6H [facility] Last Admin: 01/07/19 07:12 Dose: 200 mls/hr Sodium Chloride (Normal Saline) 1,000 mls @ 125 mls/hr IV ASDIRECTED [facility] Stop: 01/08/19 08:44 Last Infusion: 01/07/19 18:58 Dose: Infused Iron Dextran 560 mg/ Sodium (Chloride) 511.2 mls @ 127.8 mls/hr IV ONETIME ONE Stop: 01/09/19 17:59 Last Admin: 01/09/19 15:04 Dose: 127.8 mls/hr Iron Dextran 40 mg/ Sodium (Chloride) 50.8 mls @ 609.6 mls/hr IV ONETIME ONE Stop: 01/09/19 12:34 Last Admin: 01/09/19 13:28 Dose: 609.6 mls/hr Iopamidol (Isovue-300 (61%)) 100 ml IVPUSH ONETIME ONE Stop: 01/08/19 12:25 Last Admin: 01/08/19 12:25 Dose: 100 ml Lidocaine/Epinephrine (Xylocaine 2% With Epinephrine 1:100,000) 5 ml INJECT ONETIME ONE Stop: 01/09/19 09:26 Last Admin: 01/09/19 10:50 Dose: Not Given Bupivicaine 0.5%/Epinephrine 1:200, 000 [Vivacaine] Inj 0 each .XX ASDIRECTED PRN PRN Reason: local anesthesia/analgesia Last Admin: 01/09/19 11:42 Dose: 2 each Potassium Chloride (Klor-Con 10) 20 meq PO ONETIME ONE Stop: 01/08/19 07:18 Last Admin: 01/08/19 09:18 Dose: 20 meq - Exam General: Reports: Alert, Oriented, Cooperative, No Acute Distress. Denies: Mild Distress, Moderate Distress, Severe Distress, Sedated, Lethargic, Obtunded HEENT: Reports: Pupils Equal, Pupils Reactive, EOMI, Mucous Membr. Moist/[place] Neck: Reports: Other (Her left facial swelling markedly improved. No facial redness. I do not appreciate oral bleeding or drainage or fluctuation. She is able to open her mouth normally without limitation) Lungs: Reports: Clear to Auscultation, Normal Respiratory Effort. Denies: Decreased Breath Sounds, Crackles, Rales, Rhonchi, Rub, Stridor, Wheezing Cardiovascular: Reports: Regular Rate, Regular Rhythm GI/Abdominal Exam: Normal Bowel Sounds, Soft, Non-Tender, No Organomegaly, No Distention, No Mass Rectal (Female) Exam: Deferred Back Exam: Reports: Normal Inspection, Full Range of Motion. Denies: CVA Tenderness (L), CVA Tenderness (R) Skin: Reports: Warm, Dry, Intact Neurological: Reports: No New Focal Deficit, Normal Speech Psy/Mental Status: Reports: Alert, Normal Affect
== END 2019-01-10 15:35 | disposition home or self-care (01) | DRG 603 ==
LOC: DL.ED 23:01 → DL.MS 01-07 00:22
PROVIDERS: ADMIT Family Medicine; ATTEND Family Medicine
PROC: 30233N1 Transfusion of Nonautologous Red Blood Cells into Peripheral Vein, Percutaneous Approach (ICD-10-PCS; principal; 2019-01-09)
PROC: 0C9WXZ0 Drainage of Upper Tooth, External Approach, Single (ICD-10-PCS; 2019-01-09)
DX: L03.211 Cellulitis of face (principal); L03.213 Periorbital cellulitis; D64.9 Anemia, unspecified; N92.6 Irregular menstruation, unspecified; K02.9 Dental caries, unspecified; K04.7 Periapical abscess without sinus; E87.6 Hypokalemia; Z88.1 Allergy status to other antibiotic agents; Z88.2 Allergy status to sulfonamides
CPT/HCPCS: 36415; 70487; 80048; 80053; 80305-QW; 82607; 82728; 82746; 83010; 83540; 83550; 83605; 83615; 85025; 85045; 86140; 87040; 99284-25; A9270-GY; J1644; J1750; J2270; J3490; J7030; J7040; J7050; Q9967

== ENCOUNTER 2019-05-10 12:10 | Emergency (ER) | payer MEDICAID, OTHER ==
[2019-05-10] MEDS ORDERED: diphenhydrAMINE 25 MG Tab PO ONE (12:53)
[2019-05-10] MEDS ORDERED: Ketorolac 30 MG/ML SDV IM ONE (16:31)
--- NOTE | 2019-05-10 16:37 | EDM.PDOC ---
ED HPI GENERAL MEDICAL PROBLEM - General Chief Complaint: Skin Complaint Stated Complaint: SWOLLEN LEFT SIDE OF FACE Time Seen by Provider: 05/10/19 16:25 Source of Information: Reports: Patient, RN, RN Notes Reviewed History Limitations: Reports: No Limitations - History of Present Illness INITIAL COMMENTS - FREE TEXT/NARRATIVE: Patient is a 38-year-old female who presents with complaints of swelling of the left side of her face. She reports waking up in bed which was 5 to 6 hours ago with a swollen face. She denies any facial injury or trauma. She denies any known insect bite. She denies dental pain. She admits to fevers and chills with discomfort on the left side of her face with light palpation. Patient states she had a similar incident on the left side of her face 3 months ago and was admitted to the hospital for 1 week. She is able to swallow without difficulty. She denies shortness of breath, chest pain or palpitations. She has tried Benadryl with no relief. Onset: Today Duration: Getting Worse Location: Reports: Face Quality: Reports: Ache Severity: Moderate Improves with: Reports: None Worsens with: Reports: None Associated Symptoms: Reports: No Other Symptoms Left Face/Facial Pain Score (Numeric/FACES): 5 - Related Data Allergies Allergy/AdvReac Type Severity Reaction Status Date / Time amoxicillin Allergy Other Verified 05/10/19 12:58 Sulfa (Sulfonamide Allergy Swelling Verified 05/10/19 12:58 Antibiotics) Home Meds: Home Meds Acetaminophen [Tylenol] 650 mg PO Q4H PRN tablet 01/10/19 [Rx] Ferrous Sulfate 325 mg PO BIDMEALS #60 tab 01/10/19 [Rx] Past Medical History HEENT History: Reports: Other (See Below) Other HEENT History: right facial swelling Cardiovascular History: Reports: None Respiratory History: Reports: None Gastrointestinal History: Reports: None Genitourinary History: Reports: Other (See Below) Other Genitourinary History: Pt reports "a kidney issue" when she was a kid. 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 Musculoskeletal History: Reports: None Neurological History: Reports: None Psychiatric History: Reports: None Endocrine/Metabolic History: Reports: None Hematologic History: Reports: Anemia Immunologic History: Reports: None Oncologic (Cancer) History: Reports: None Dermatologic History: Reports: Cellulitis - Infectious Disease History Infectious Disease History: Reports: None - Past Surgical History Head Surgeries/Procedures: Reports: None Social & Family History - Family History Family Medical History: Noncontributory - Tobacco Use Smoking Status *Q: Current Every Day Smoker Years of Tobacco use: 10 Packs/Tins Daily: 0.5 - Caffeine Use Caffeine Use: Reports: Tea Caffeine Use Comment: 2 Herbalife teas daily. - Recreational Drug Use Recreational Drug Use: No ED ROS GENERAL - Review of Systems Review Of Systems: Comprehensive ROS is negative, except as noted in HPI. ED EXAM, SKIN/RASH Exam: See Below Exam Limited By: No Limitations General Appearance: Alert, WD/WN, No Apparent Distress Eye Exam: Left Eye: Other (left maxillary region swollen and painful to light palpation. Mild erythema with no drainage noted. ), Bilateral Eye: EOMI, Normal Fundi, PERRL Ears: Normal External Exam, Normal Canal, Hearing Grossly Normal, Normal TMs Nose: Normal Inspection, Normal Mucosa, No Blood Throat/Mouth: Normal Inspection, Normal Lips, Normal Teeth, Normal Gums, Normal Oropharynx, Normal Voice, No Airway Compromise Head: Atraumatic, Normocephalic, Facial Swelling, Facial Tenderness Neck: Normal Inspection, Supple, Non-Tender, Full Range of Motion Respiratory/Chest: No Respiratory Distress, Lungs Clear, Normal Breath Sounds, No Accessory Muscle Use, Chest Non-Tender Cardiovascular: Normal Peripheral Pulses, Regular Rate, Rhythm, No Edema, No Gallop, No JVD, No Murmur, No Rub GI/Abdominal: Normal Bowel Sounds, Soft, Non-Tender, No Organomegaly, No Distention, No Abnormal Bruit, No Mass (Female) Exam: Deferred Rectal (Female) Exam: Deferred Neurological: Alert, Oriented, CN II-XII Intact, Normal Cognition, Normal Gait, Normal Reflexes, No Motor/Sensory Deficits Psychiatric: Normal Affect, Normal Mood Skin: Warm, Dry, Intact, No Rash Course - Vital Signs Last Recorded V/S: Last Vital Signs Temp 100.9 F H 05/10/19 15:04 Pulse 98 05/10/19 15:04 Resp 18 05/10/19 15:04 BP 110/61 05/10/19 15:04 Pulse Ox 100 05/10/19 15:04 - Orders/Labs/Meds Orders: Active Orders 24 hr Category Date Time Status CULTURE BLOOD [BC] Stat Lab 05/10/19 16:33 Results CULTURE BLOOD [BC] Stat Lab 05/10/19 17:40 Received Vancomycin 1 gm Med 05/10/19 18:11 Active Dextrose 5% in Water 250 ml IV ONETIME Blood Culture x2 Reflex Set [OM.PC] Stat Oth 05/10/19 16:31 Ordered Medication Orders Vancomycin HCl 1 gm/ Dextrose/ (Water) 250 mls @ 167 mls/hr IV ONETIME ONE Stop: 05/10/19 19:40 Last Admin: 05/10/19 18:22 Dose: 167 mls/hr Labs: Laboratory Tests 05/10/19 05/10/19 05/10/19 Range/Units 16:33 16:33 16:33 WBC 15.4 H (5.0-10.0) 10^3/uL RBC 4.92 (4.2-5.4) 10^6/uL Hgb 11.8 L D (12.0-16.0) g/dL Hct 36.4 L (37.0-47.0) % MCV 74.0 L D (80-100) fL MCH 24.0 L (27.0-34.0) pg MCHC 32.4 L (33.0-35.0) g/dL Plt Count 251 (150-450) 10^3/uL Neut % (Auto) 83.1 H (42.2-75.2) % Lymph % (Auto) 10.6 L (20.5-50.1) % [place] % (Auto) 5.6 (2-8) % Eos % (Auto) 0.4 L (1.0-3.0) % Baso % (Auto) 0.3 (0.0-1.0) % ESR (0-20) mm/hr Sodium 136 (135-145) mmol/L Potassium 4.4 (3.6-5.0) mmol/L Chloride 105 (101-111) mmol/L Carbon Dioxide 23.0 (21.0-31.0) mmol/L Anion Gap 12.4 BUN 8 (7-18) mg/dL Creatinine 0.6 (0.6-1.3) mg/dL Est Cr Clr Drug Dosing 123.63 mL/min Estimated GFR (MDRD) > 60 Glucose 93 (74-105) mg/dL Lactic Acid (0.5-2.0) mmol/L Calcium 9.2 (8.4-10.2) mg/dl C-Reactive Protein 1.0 (0.0-1.3) mg/dL 05/10/19 05/10/19 Range/Units 16:33 16:33 WBC (5.0-10.0) 10^3/uL RBC (4.2-5.4) 10^6/uL Hgb (12.0-16.0) g/dL Hct (37.0-47.0) % MCV (80-100) fL MCH (27.0-34.0) pg MCHC (33.0-35.0) g/dL Plt Count (150-450) 10^3/uL Neut % (Auto) (42.2-75.2) % Lymph % (Auto) (20.5-50.1) % [place] % (Auto) (2-8) % Eos % (Auto) (1.0-3.0) % Baso % (Auto) (0.0-1.0) % ESR 14 (0-20) mm/hr Sodium (135-145) mmol/L Potassium (3.6-5.0) mmol/L Chloride (101-111) mmol/L Carbon Dioxide (21.0-31.0) mmol/L Anion Gap BUN (7-18) mg/dL Creatinine (0.6-1.3) mg/dL Est Cr Clr Drug Dosing mL/min Estimated GFR (MDRD) Glucose (74-105) mg/dL Lactic Acid 0.8 (0.5-2.0) mmol/L Calcium (8.4-10.2) mg/dl C-Reactive Protein (0.0-1.3) mg/dL Meds: Medications Generic Name Dose Route Start Last Admin Trade Name Freq PRN Reason Stop Dose Admin Vancomycin HCl 1 gm/ Dextrose/ 250 mls @ 167 mls/hr 05/10/19 18:11 05/10/19 18:22 Water IV 05/10/19 19:40 167 mls/hr ONETIME ONE Administration Discontinued Medications Generic Name Dose Route Start Last Admin Trade Name Freq PRN Reason Stop Dose Admin Diphenhydramine HCl 25 mg 05/10/19 12:53 05/10/19 13:01 Benadryl PO 05/10/19 12:54 25 mg ONETIME ONE Administration Piperacillin Sod/Tazobactam 100 mls @ 200 mls/hr 05/10/19 18:11 05/10/19 19: 13 Sod 3.375 gm/ Sodium Chloride IV 05/10/19 18:40 Not Given ONETIME ONE Sodium Chloride 1,000 mls @ 1,000 mls/hr 05/10/19 18:22 05/10/19 19:18 Normal Saline IV 05/10/19 19:21 1,000 mls/hr .BOLUS ONE Administration Iopamidol 100 ml 05/10/19 17:58 05/10/19 18:22 Isovue-300 (61%) IVPUSH 05/10/19 17:59 100 ml ONETIME ONE Administration Ketorolac Tromethamine 30 mg 05/10/19 16:31 05/10/19 17:05 Toradol IM 05/10/19 16:32 Not Given ONETIME ONE Ketorolac Tromethamine 30 mg 05/10/19 16:44 05/10/19 16:51 Toradol IVPUSH 05/10/19 16:45 30 mg ONETIME ONE Administration Metronidazole 500 mg 05/10/19 18:47 05/10/19 19:17 Metronidazole PO 05/10/19 18:48 500 mg ONETIME ONE Administration - Radiology Interpretation Free Text/Narrative:: CT maxillofacial sinus: Left maxillary region soft tissue subcutaneous edema consistent with cellulitis. No abscess. Minor lymph node enlargement left submandibular region. See rad report. - Re-Assessments/Exams Free Text/Narrative Re-Assessment/Exam: 05/10/19 18:[address] results with patient. 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 She is willing to follow up in the clinic for Iv antibiotics. Vanco 1 gm IV and Flagyl 500 mg PO. RX for clindamycin sent denis with patient. Medication side effects discussed. Follow up in the clinic in one day as discussed with Dr. Spencer. 05/10/19 19:27 Departure - Departure Time of Disposition: 19:25 Disposition: Home, Self-Care 01 Clinical Impression: Cellulitis of external cheek, left - Discharge Information Instructions: Cellulitis, Adult, [id number] Forms: ED Department Discharge Additional Instructions: Follow up in the clinic as discussed with Dr. Spencer. Take clindamycin 450 mg TID as prescribed. Patient verbalized understanding. Sepsis Event Note - Evaluation Sepsis Screening Result: No Definite Risk - Focused Exam Vital Signs: Vital Signs Temp Pulse Resp BP Pulse Ox 05/10/19 15:04 100.9 F H 98 18 110/61 100 05/10/19 12:48 96.4 F L 116 H 16 124/81 100 Date Exam was Performed: 05/10/19 Time Exam was Performed: 19:23 - My Orders Last 24 Hours: My Active Orders 05/10/19 16:31 Blood Culture x2 Reflex Set [OM.PC] Stat 05/10/19 16:33 CULTURE BLOOD [BC] Stat 05/10/19 17:40 CULTURE BLOOD [BC] Stat 05/10/19 18:11 Vancomycin 1 gm Dextrose 5% in Water 250 ml IV ONETIME - Assessment/Plan Last 24 Hours: My Active Orders 05/10/19 16:31 Blood Culture x2 Reflex Set [OM.PC] Stat 05/10/19 16:33 CULTURE BLOOD [BC] Stat 05/10/19 17:40 CULTURE BLOOD [BC] Stat 05/10/19 18:11 Vancomycin 1 gm Dextrose 5% in Water 250 ml IV ONETIME
[2019-05-10] MEDS ORDERED: Ketorolac 30 MG/ML SDV IVPUSH ONE (16:44)
[2019-05-10 17:11] LABS: ANION GAP 12.4; CHLORIDE,CL 105 mmol/L (101-111); SODIUM,NA 136 mmol/L (135-145)
[2019-05-10] MEDS ORDERED: Iopamidol 612 MG/ML 100 ML Bottle IVPUSH ONE (17:58)
[2019-05-10] MEDS ORDERED: Piperacillin/Tazobactam 3.375 GM in Sodium Chloride 0.9% 100 ML IV ONE (18:11)
[2019-05-10] MEDS ORDERED: Sodium Chloride 0.9% 1,000 ML IV ONE (18:22)
[2019-05-10] MEDS ORDERED: metroNIDAZOLE 250 MG Tab PO ONE (18:47)
== END 2019-05-10 20:04 | disposition home or self-care (01) ==
LOC: DL.ED 12:10
DX: L03.211 Cellulitis of face (principal); F17.210 Nicotine dependence, cigarettes, uncomplicated; Z88.0 Allergy status to penicillin; Z88.2 Allergy status to sulfonamides
CPT/HCPCS: 36415; 70487; 80048; 83605; 85025; 85651; 86140; 87040; 96365; 96366; 96375; 99284; A9270; J1885; J3370; J7030; J7060; Q9967

== ENCOUNTER 2019-05-10 22:54 | Observation (INO) | payer OTHER ==
[2019-05-10] MEDS ORDERED: Ketorolac 30 MG/ML SDV IVPUSH ONE (23:55)
[2019-05-10] MEDS ORDERED: Clindamycin Phosphate 600 MG in Sodium Chloride 0.9% 100 ML IV ONE (23:58)
[2019-05-11 00:19] LABS: ANION GAP 10.8; CHLORIDE,CL 106 mmol/L (101-111); SODIUM,NA 137 mmol/L (135-145)
--- NOTE | 2019-05-11 00:28 | EDM.PDOC ---
ED HPI GENERAL MEDICAL PROBLEM - General Chief Complaint: General Stated Complaint: GETTING WORSE Time Seen by Provider: 05/10/19 23:53 Source of Information: Reports: Patient History Limitations: Reports: No Limitations - History of Present Illness INITIAL COMMENTS - FREE TEXT/NARRATIVE: Return to ED with increased, redness swelling and discomfort to left side of face. Patient seen early tonight with cellulitis, received IV Vancomycin and oral flagyl. Left Cheek Pain Score (Numeric/FACES): 6 - Related Data Allergies Allergy/AdvReac Type Severity Reaction Status Date / Time amoxicillin Allergy Other Verified 05/10/19 12:58 Sulfa (Sulfonamide Allergy Swelling Verified 05/10/19 12:58 Antibiotics) Home Meds: Home Meds Acetaminophen [Tylenol] 650 mg PO Q4H PRN tablet 01/10/19 [Rx] Past Medical History HEENT History: Reports: Other (See Below) Other HEENT History: right facial swelling Cardiovascular History: Reports: None Respiratory History: Reports: None Gastrointestinal History: Reports: None Genitourinary History: Reports: Other (See Below) Other Genitourinary History: Pt reports "a kidney issue" when she was a kid. 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 Musculoskeletal History: Reports: None Neurological History: Reports: None Psychiatric History: Reports: None Endocrine/Metabolic History: Reports: None Hematologic History: Reports: Anemia Immunologic History: Reports: None Oncologic (Cancer) History: Reports: None Dermatologic History: Reports: Cellulitis - Infectious Disease History Infectious Disease History: Reports: None - Past Surgical History Head Surgeries/Procedures: Reports: None Social & Family History - Family History Family Medical History: Noncontributory - Tobacco Use Smoking Status *Q: Unknown Ever Smoked - Caffeine Use Caffeine Use: Reports: Tea Caffeine Use Comment: 2 Herbalife teas daily. ED ROS GENERAL - Review of Systems Review Of Systems: Comprehensive ROS is negative, except as noted in HPI. Constitutional: Reports: Fever HEENT: Reports: Other (face increased swelling, throbbing, more pressure below eye) Respiratory: Reports: No Symptoms GI/Abdominal: Reports: No Symptoms Skin: Reports: Bruising (left temporal area from earlier bumping head on edge of door), Other (left side red) Neurological: Reports: No Symptoms ED EXAM, GENERAL - Physical Exam Exam: See Below Exam Limited By: No Limitations General Appearance: Alert, Mild Distress Eye Exam: Bilateral Eye: EOMI Ears: Normal External Exam, Hearing Grossly Normal Nose: Normal Inspection Throat/Mouth: Normal Inspection, Normal Voice Head: Normocephalic, Facial Swelling (left below eye to lower cheek) Respiratory/Chest: No Respiratory Distress, Lungs Clear, Normal Breath Sounds Cardiovascular: Regular Rate, Rhythm GI/Abdominal: Soft Back Exam: Normal Inspection, Full Range of Motion Extremities: Normal Inspection, Normal Range of Motion Neurological: Alert, Oriented, Normal Cognition Psychiatric: Normal Affect Skin Exam: Warm, Dry, Intact, Normal Color Course - Vital Signs Last Recorded V/S: Last Vital Signs Temp 99.9 F 05/11/19 00:33 Pulse 87 05/11/19 00:33 Resp 16 05/11/19 00:33 BP 100/63 05/11/19 00:33 Pulse Ox 99 05/11/19 00:33 - Orders/Labs/Meds Labs: Laboratory Tests 05/10/19 05/10/19 Range/Units 23:52 23:52 WBC 11.1 H (5.0-10.0) 10^3/uL RBC 4.26 (4.2-5.4) 10^6/uL Hgb 10.2 L D (12.0-16.0) g/dL Hct 32.1 L (37.0-47.0) % MCV 75.4 L (80-100) fL MCH 23.9 L (27.0-34.0) pg MCHC 31.8 L (33.0-35.0) g/dL Plt Count 211 (150-450) 10^3/uL Neut % (Auto) 76.4 H (42.2-75.2) % Lymph % (Auto) 14.4 L (20.5-50.1) % [place] % (Auto) 8.2 H (2-8) % Eos % (Auto) 0.7 L (1.0-3.0) % Baso % (Auto) 0.3 (0.0-1.0) % Sodium 137 (135-145) mmol/L Potassium 3.8 (3.6-5.0) mmol/L Chloride 106 (101-111) mmol/L Carbon Dioxide 24.0 (21.0-31.0) mmol/L Anion Gap 10.8 BUN 11 (7-18) mg/dL Creatinine 0.7 (0.6-1.3) mg/dL Est Cr Clr Drug Dosing 105.97 mL/min Estimated GFR (MDRD) > 60 Glucose 95 (74-105) mg/dL Calcium 8.6 (8.4-10.2) mg/dl Meds: Medications Discontinued Medications Generic Name Dose Route Start Last Admin Trade Name Freq PRN Reason Stop Dose Admin Clindamycin Phosphate 600 mg/ 104 mls @ 200 mls/hr 05/10/19 23:58 05/11/19 00 :13 Sodium Chloride IV 05/11/19 00:29 200 mls/hr ONETIME ONE Administration Sodium Chloride 1,000 mls @ 999 mls/hr 05/11/19 00:55 05/11/19 01:08 Normal Saline IV 05/11/19 01:55 999 mls/hr .BOLUS ONE Administration Ketorolac Tromethamine 30 mg 05/10/19 23:55 05/11/19 00:11 Toradol IVPUSH 05/10/19 23:56 30 mg ONETIME ONE Administration - Re-Assessments/Exams Free Text/Narrative Re-Assessment/Exam: 05/11/19 02:57 Dr Rey JARQUIN Hospitalist admitting. Departure - Departure Time of Disposition: 00:25 Disposition: Refer to Observation Condition: Good Clinical Impression: Cellulitis of external cheek, left - Discharge Information *PRESCRIPTION DRUG MONITORING PROGRAM REVIEWED*: No *COPY OF PRESCRIPTION DRUG MONITORING REPORT IN PATIENT WILLIAMS: No Sepsis Event Note - Evaluation Sepsis Screening Result: Possible Sepsis Risk - Focused Exam Vital Signs: Vital Signs Temp Pulse Resp BP Pulse Ox 05/10/19 23:45 100.1 F 101 H 16 112/75 97 Date Exam was Performed: 05/11/19 Time Exam was Performed: 02:54
[2019-05-11] MEDS ORDERED: Sodium Chloride 0.9% 1,000 ML IV ONE (00:55)
[2019-05-11] MEDS ORDERED: Acetaminophen/oxyCODONE 325-5 MG Tab PO PRN (03:49)
[2019-05-11] MEDS ORDERED: Ondansetron 4 MG/2 ML SDV IVPUSH PRN (06:48)
[2019-05-11] MEDS ORDERED: Acetaminophen 325 MG Tab PO PRN (06:48)
[2019-05-11] MEDS ORDERED: Magnesium Hydroxide 400 MG/5 ML Susp 30 ML Cup PO PRN (06:48)
[2019-05-11] MEDS ORDERED: Docusate Sodium 100 MG Cap PO PRN (06:48)
--- NOTE | 2019-05-11 06:53 | PCM.HP ---
H&P History of Present Illness - General Date of Service: 05/11/19 Admit Problem/Dx: Admission Diagnosis/Problem Admission Diagnosis/Problem Cellulitis Source of Information: Patient History Limitations: Reports: No Limitations - History of Present Illness Initial Comments - Free Text/Narative: Kelsie is 38 y/o F with no significant past medical history presented to the ED for evaluation of tender swelling to the left side of the face alongside redness. As per patient yesterday she woke up with the above. Pain, welling and redness got increasingly worse so she presented to the ED. She was managed with IV Vanco and was discharged. Patient presented early this morning because the pain and swelling has gotten worse. She denies trauma to the face. No toothache. Pain is throbbing in nature, about 7/10 in severity, no relieving or aggravating factors. She notes fever and chills. She denies nausea, vomiting, abdominal pain. No vision changes. In the ED her vitals were stable. She received IV clindamycin and transferred for hospitalization for further treatment. Of note patient reports that she has similar presentation last December for which she was an admission for 5 days. She improved on IV antibiotics. Onset of Symptoms: Reports: Today Duration of Symptoms: Reports: Hour(s): Location: Reports: Face Quality: Reports: Dull, Throbbing Severity: Severe Improves with: Reports: None Worsens with: Reports: None Associated Symptoms: Reports: No Other Symptoms Left Cheek Pain Score (Numeric/FACES): 6 - Related Data Allergies/Adverse Reactions: Allergies Allergy/AdvReac Type Severity Reaction Status Date / Time amoxicillin Allergy Other Verified 05/10/19 12:58 Sulfa (Sulfonamide Allergy Swelling Verified 05/10/19 12:58 Antibiotics) Home Medications: Home Meds Acetaminophen [Tylenol] 650 mg PO Q4H PRN tablet 01/10/19 [Rx] Past Medical History HEENT History: Reports: Other (See Below) Other HEENT History: right facial swelling Cardiovascular History: Reports: None Respiratory History: Reports: None Gastrointestinal History: Reports: None Genitourinary History: Reports: Other (See Below) Other Genitourinary History: Pt reports "a kidney issue" when she was a kid. 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 Musculoskeletal History: Reports: None Neurological History: Reports: None Psychiatric History: Reports: None Endocrine/Metabolic History: Reports: None Hematologic History: Reports: Anemia Immunologic History: Reports: None Oncologic (Cancer) History: Reports: None Dermatologic History: Reports: Cellulitis - Infectious Disease History Infectious Disease History: Reports: None - Past Surgical History Head Surgeries/Procedures: Reports: None Social & Family History - Family History Family Medical History: Noncontributory - Tobacco Use Smoking Status *Q: Unknown Ever Smoked Years of Tobacco use: 20 Packs/Tins Daily: 0.5 Second Hand Smoke Exposure: Yes - Caffeine Use Caffeine Use: Reports: Tea Caffeine Use Comment: 2 Her[employer]ife teas daily. - Recreational Drug Use Recreational Drug Use: No H&P Review of Systems - Review of Systems: Review Of Systems: See Below General: Reports: Fever, Chills, Weakness, Fatigue, Other (Redness, swelling and tenderness to left side of face) HEENT: Reports: Ear Pain, Headaches Pulmonary: Reports: No Symptoms Cardiovascular: Reports: No Symptoms Gastrointestinal: Reports: No Symptoms Genitourinary: Reports: No Symptoms Musculoskeletal: Reports: Neck Pain Skin: Reports: Other (Redness to left side of face) Neurological: Reports: No Symptoms Hematologic/Lymphatic: Reports: No Symptoms Immunologic: Reports: No Symptoms Exam - Exam Exam: See Below - Vital Signs Vital Signs: Last Vital Signs Temp 99.9 F 05/11/19 00:33 Pulse 87 05/11/19 00:33 Resp 16 05/11/19 00:33 BP 100/63 05/11/19 00:33 Pulse Ox 99 05/11/19 00:33 Weight: 156 lb 1 oz - Exam General: Alert, Oriented, 4 HEENT: Conjunctiva Clear, EACs Clear, EOMI, Hearing Intact, Mucosa Moist & [place] , Nares Patent, Normal Nasal Septum, Posterior Pharynx Clear, TMs Clear, Other ( Tender swelling with erythema to the left side of face), PERRLA Neck: Supple, Trachea Midline, 2 Lungs: Clear to Auscultation, Normal Respiratory Effort Cardiovascular: Regular Rate, Regular Rhythm GI/Abdominal Exam: Normal Bowel Sounds, Soft, Non-Tender, No Organomegaly, No Distention, No Abnormal Bruit, No Mass, Pelvis Stable (Female) Exam: Normal External Exam, Normal Speculum Exam, Normal Bimanual Exam Rectal (Female) Exam: Normal Exam, Normal Rectal Tone Back Exam: Normal Inspection, Full Range of Motion, NT Extremities: Normal Inspection, Normal Range of Motion, Non-Tender, No Pedal Edema, Normal Capillary Refill Skin: Warm, Dry, Intact Neurological: Cranial Nerves Intact, Reflexes Equal Bilateral Neuro Extensive - Mental Status: Alert, Oriented x3, Normal Mood/Affect, Normal Cognition Neuro Extensive - Motor, Sensory, Reflexes: CN II-XII Intact, Normal Gait, Normal Reflexes Psychiatric: Alert, Normal Affect, Normal Mood - Patient Data Lab Results Last 24 hrs: Laboratory Results - last 24 hr 05/10/19 05/10/19 Range/Units 23:52 23:52 WBC 11.1 H (5.0-10.0) 10^3/uL RBC 4.26 (4.2-5.4) 10^6/uL Hgb 10.2 L D (12.0-16.0) g/dL Hct 32.1 L (37.0-47.0) % MCV 75.4 L (80-100) fL MCH 23.9 L (27.0-34.0) pg MCHC 31.8 L (33.0-35.0) g/dL Plt Count 211 (150-450) 10^3/uL Neut % (Auto) 76.4 H (42.2-75.2) % Lymph % (Auto) 14.4 L (20.5-50.1) % [place] % (Auto) 8.2 H (2-8) % Eos % (Auto) 0.7 L (1.0-3.0) % Baso % (Auto) 0.3 (0.0-1.0) % Sodium 137 (135-145) mmol/L Potassium 3.8 (3.6-5.0) mmol/L Chloride 106 (101-111) mmol/L Carbon Dioxide 24.0 (21.0-31.0) mmol/L Anion Gap 10.8 BUN 11 (7-18) mg/dL Creatinine 0.7 (0.6-1.3) mg/dL Est Cr Clr Drug Dosing 105.97 mL/min Estimated GFR (MDRD) > 60 Glucose 95 (74-105) mg/dL Calcium 8.6 (8.4-10.2) mg/dl Result Diagrams: 05/11/19 08:00 05/11/19 08:00 - Problem List (1) Cellulitis of external cheek, left SNOMED Code(s): 95633952 ICD Code: L03.211 - CELLULITIS OF FACE Status: Acute Current Visit: Yes (2) Cellulitis, face SNOMED Code(s): 532250588 ICD Code: L03.211 - CELLULITIS OF FACE Status: Acute Priority: High Current Visit: No (3) Periorbital cellulitis of left eye SNOMED Code(s): 659085636 ICD Code: L03.213 - PERIORBITAL CELLULITIS Status: Acute Current Visit: No Problem List Initiated/Reviewed/Updated: Yes Orders Last 24hrs: Active Orders 24 hr Category Date Time Status Admission Diagnosis [ADT] Stat ADT 05/11/19 00:24 Ordered Admission Status [Patient Status] [ADT] Routine ADT 05/11/19 00:24 Active Ambulate [RC] ASDIRECTED Care 05/11/19 06:48 Ordered Notify Provider Vital Signs [RC] ASDIRECTED Care 05/11/19 06:49 Ordered Oxygen Therapy [RC] PRN Care 05/11/19 06:48 Ordered VTE/DVT Education [RC] PER UNIT ROUTINE Care 05/11/19 06:48 Ordered Vital Signs [RC] Q4H Care 05/11/19 06:48 Ordered Regular Diet [DIET] Diet 05/11/19 Breakfast Ordered BASIC METABOLIC PANEL,BMP [CHEM] Routine Lab 05/11/19 06:48 Ordered CBC WITH AUTO DIFF [HEME] Routine Lab 05/11/19 06:48 Ordered Acetaminophen [Tylenol] Med 05/11/19 06:48 Ordered 650 mg PO Q4H PRN Acetaminophen/oxyCODONE [Percocet 325-5 MG] Med 05/11/19 03:49 Active 1 tab PO Q6H PRN Clindamycin Phosphate [Cleocin] 600 mg Med 05/11/19 07:00 Ordered Sodium Chloride 0.9% [Normal Saline] 100 ml IV Q8H Docusate Sodium [Colace] Med 05/11/19 06:48 Ordered 100 mg PO BID PRN Heparin Sodium Med 05/11/19 09:00 Ordered 5,000 units SUBCUT Q12HR Lactated Ringers [Ringers, Lactated] 1,000 ml Med 05/11/19 07:00 Ordered IV ASDIRECTED Magnesium Hydroxide [Milk of Magnesia] Med 05/11/19 06:48 Ordered 30 ml PO Q12H PRN Ondansetron [Zofran] Med 05/11/19 06:48 Ordered 4 mg IVPUSH Q6H PRN Resuscitation Status Routine Resus Stat 05/11/19 06:48 Ordered Medication Orders Acetaminophen (Tylenol) 650 mg PO Q4H PRN PRN Reason: Pain (Mild 1-3)/fever Docusate Sodium (Colace) 100 mg PO BID PRN PRN Reason: Constipation Heparin Sodium (Porcine) (Heparin Sodium) 5,000 units SUBCUT Q12HR JANETTE Lactated Ringer's (Ringers, Lactated) 1,000 mls @ 100 mls/hr IV ASDIRECTED JANETTE Clindamycin Phosphate 600 mg/ (Sodium Chloride) 104 mls @ 200 mls/hr IV Q8H JANETTE Magnesium Hydroxide (Milk Of Magnesia) 30 ml PO Q12H PRN PRN Reason: Constipation Ondansetron HCl (Zofran) 4 mg IVPUSH Q6H PRN PRN Reason: Nausea/Vomiting Oxycodone/Acetaminophen (Percocet 325-5 Mg) 1 tab PO Q6H PRN PRN Reason: Pain Last Admin: 05/11/19 03:55 Dose: 1 tab Assessment/Plan Comment:: #Periorbital cellulitis -Patient presented to the ED for evaluation of tender swelling and redness to the left side of face -She denies trauma -Admit to medical floor -Monitor vitals -Blood culture -IV vancomycin -We will consider head CT if no improvement -A1c #Leukocytosis due to above -Daily CBC #Chronic microcytic anemia -Stable H&H -Iron supplements #Regular diet #Full Code
[2019-05-11] MEDS ORDERED: Clindamycin Phosphate 600 MG in Sodium Chloride 0.9% 100 ML IV SCH (08:00)
[2019-05-11] MEDS: Heparin Sodium 5,000 Units/ML Vial SUBCUT SCH ×2 (08:20→21:12)
[2019-05-11 09:18] LABS: ANION GAP 10.3; CHLORIDE,CL 108 mmol/L (101-111); SODIUM,NA 136 mmol/L (135-145)
[2019-05-11] MEDS: Ferrous Sulfate 325 MG Tab PO SCH (13:57)
[2019-05-11] MEDS: Lactated Ringers 1,000 ML IV SCH (16:16)
[2019-05-12] MEDS: Lactated Ringers 1,000 ML IV SCH ×2 (05:26→17:55)
[2019-05-12 06:44] LABS: ANION GAP 11.3; CHLORIDE,CL 108 mmol/L (101-111); SODIUM,NA 138 mmol/L (135-145)
--- NOTE | 2019-05-12 08:53 | PCM.PN ---
- General Info Date of Service: 05/12/19 Admission Dx/Problem (Free Text): Admission Diagnosis/Problem Admission Diagnosis/Problem Cellulitis Subjective Update: Patient doing well. Left facial swelling, redness and pain has significantly improved. She denies new complaints. No fever or chills. Functional Status: Reports: Pain Controlled - Review of Systems General: Reports: No Symptoms HEENT: Reports: No Symptoms Pulmonary: Reports: No Symptoms Cardiovascular: Reports: No Symptoms Gastrointestinal: Reports: No Symptoms Genitourinary: Reports: No Symptoms Musculoskeletal: Reports: No Symptoms Skin: Reports: No Symptoms Neurological: Reports: No Symptoms Psychiatric: Reports: No Symptoms - Patient Data Vitals - Most Recent: Last Vital Signs Temp 97.8 F 05/12/19 07:52 Pulse 73 05/12/19 07:52 Resp 16 05/12/19 07:52 BP 108/68 05/12/19 07:52 Pulse Ox 97 05/12/19 07:52 Weight - Most Recent: 156 lb 1 oz I&O - Last 24 Hours: Intake & Output 05/11/19 05/12/19 05/12/19 22:59 06:59 14:59 Intake Total 1330 1708 Balance 1330 1708 Lab Results Last 24 Hours: Laboratory Results - last 24 hr 05/11/19 05/12/19 05/12/19 Range/Units 08:00 06:10 06:10 WBC 7.1 (5.0-10.0) 10^3/uL RBC 3.98 L (4.2-5.4) 10^6/uL Hgb 9.4 L (12.0-16.0) g/dL Hct 30.3 L (37.0-47.0) % MCV 76.1 L (80-100) fL MCH 23.6 L (27.0-34.0) pg MCHC 31.0 L (33.0-35.0) g/dL Plt Count 212 (150-450) 10^3/uL Sodium 136 138 (135-145) mmol/L Potassium 4.3 4.3 (3.6-5.0) mmol/L Chloride 108 108 (101-111) mmol/L Carbon Dioxide 22.0 23.0 (21.0-31.0) mmol/L Anion Gap 10.3 11.3 BUN 11 8 (7-18) mg/dL Creatinine 0.6 0.5 L (0.6-1.3) mg/dL Est Cr Clr Drug Dosing 123.63 148.35 mL/min Estimated GFR (MDRD) > 60 > 60 Glucose 92 84 (74-105) mg/dL Calcium 8.4 8.6 (8.4-10.2) mg/dl Med Orders - Current: Current Medications Acetaminophen (Tylenol) 650 mg PO Q4H PRN PRN Reason: Pain (Mild 1-3)/fever Last Admin: 05/11/19 08:17 Dose: 650 mg Docusate Sodium (Colace) 100 mg PO BID PRN PRN Reason: Constipation Ferrous Sulfate (Ferrous Sulfate) 325 mg PO WITHBREAKFAST [facility] Last Admin: 05/11/19 13:57 Dose: 325 mg Heparin Sodium (Porcine) (Heparin Sodium) 5,000 units SUBCUT Q12HR [facility] Last Admin: 05/11/19 21:12 Dose: Not Given Lactated Ringer's (Ringers, Lactated) 1,000 mls @ 100 mls/hr IV ASDIRECTED [facility] Last Admin: 05/12/19 05:26 Dose: 100 mls/hr Vancomycin HCl 1 gm/ Sodium (Chloride) 250 mls @ 166.667 mls/hr IV Q8H [facility] Last Admin: 05/12/19 02:32 Dose: 166.667 mls/hr Magnesium Hydroxide (Milk Of Magnesia) 30 ml PO Q12H PRN PRN Reason: Constipation Ondansetron HCl (Zofran) 4 mg IVPUSH Q6H PRN PRN Reason: Nausea/Vomiting Oxycodone/Acetaminophen (Percocet 325-5 Mg) 1 tab PO Q6H PRN PRN Reason: Pain Last Admin: 05/11/19 03:55 Dose: 1 tab Vancomycin HCl (Pharmacy To Dose - Vancomycin) 1 dose .XX ASDIRECTED [facility] Discontinued Medications Clindamycin Phosphate 600 mg/ (Sodium Chloride) 104 mls @ 200 mls/hr IV ONETIME ONE Stop: 05/11/19 00:29 Last Admin: 05/11/19 00:13 Dose: 200 mls/hr Sodium Chloride (Normal Saline) 1,000 mls @ 999 mls/hr IV .BOLUS ONE Stop: 05/11/19 01:55 Last Admin: 05/11/19 01:08 Dose: 999 mls/hr Clindamycin Phosphate 600 mg/ (Sodium Chloride) 104 mls @ 200 mls/hr IV Q8H [facility] Last Admin: 05/11/19 08:15 Dose: 200 mls/hr Ketorolac Tromethamine (Toradol) 30 mg IVPUSH ONETIME ONE Stop: 05/10/19 23:56 Last Admin: 05/11/19 00:11 Dose: 30 mg - Exam Quality Assessment: DVT Prophylaxis General: Alert, Oriented HEENT: Pupils Equal, Pupils Reactive, EOMI, Mucous Membr. Moist/[place] Neck: Supple Lungs: Clear to Auscultation, Normal Respiratory Effort Cardiovascular: Regular Rate, Regular Rhythm GI/Abdominal Exam: Normal Bowel Sounds, Soft, Non-Tender, No Organomegaly, No Distention, No Abnormal Bruit, No Mass, Pelvis Stable (Female) Exam: Normal External Exam, Normal Speculum Exam, Normal Bimanual Exam Back Exam: Normal Inspection, Full Range of Motion Extremities: Normal Inspection, Normal Range of Motion, Non-Tender, No Pedal Edema, Normal Capillary Refill Skin: Warm, Dry, Intact Wound/Incisions: Healing Well Neurological: No New Focal Deficit Psy/Mental Status: Alert, Normal Affect, Normal Mood Sepsis Event Note - Evaluation Sepsis Screening Result: No Definite Risk - Focused Exam Vital Signs: Vital Signs Temp Pulse Resp BP Pulse Ox Pulse Ox 05/12/19 07:52 97.8 F 73 16 108/68 97 05/12/19 06:48 93 L 05/11/19 23:30 98.1 F 84 20 104/58 L 98 Date Exam was Performed: 05/12/19 Time Exam was Performed: 10:03 - Problem List & Annotations (1) Cellulitis of external cheek, left SNOMED Code(s): 18291938 Code(s): L03.211 - CELLULITIS OF FACE Status: Acute Current Visit: Yes (2) Cellulitis, face SNOMED Code(s): 137179944 Code(s): L03.211 - CELLULITIS OF FACE Status: Acute Priority: High Current Visit: No (3) Periorbital cellulitis of left eye SNOMED Code(s): 145344111 Code(s): L03.213 - PERIORBITAL CELLULITIS Status: Acute Current Visit: No - Problem List Review Problem List Initiated/Reviewed/Updated: Yes - My Orders Last 24 Hours: My Active Orders 05/11/19 09:00 Heparin Sodium 5,000 units SUBCUT Q12HR Pharmacy to Dose - Vancomycin 1 dose .XX ASDIRECTED 05/11/19 10:00 Vancomycin 1 gm Sodium Chloride 0.9% [Normal Saline (AdvBag)] 250 ml IV Q8H 05/11/19 12:45 Ferrous Sulfate 325 mg PO WITHBREAKFAST 05/12/19 09:30 VANCOMYCIN TROUGH [CHEM] Timed 05/13/19 07:00 BASIC METABOLIC PANEL,BMP [CHEM] DAILY CBC W/O DIFF,HEMOGRAM [HEME] DAILY 05/14/19 07:00 BASIC METABOLIC PANEL,BMP [CHEM] DAILY CBC W/O DIFF,HEMOGRAM [HEME] DAILY 05/15/19 07:00 BASIC METABOLIC PANEL,BMP [CHEM] DAILY CBC W/O DIFF,HEMOGRAM [HEME] DAILY - Plan Plan:: #Periorbital cellulitis -Improving -Continue IV vancomycin -A1c #Leukocytosis due to above -Resolved #Chronic microcytic anemia -Stable H&H -Iron supplements #Regular diet #Full Code
[2019-05-12] MEDS: Heparin Sodium 5,000 Units/ML Vial SUBCUT SCH ×2 (09:16→20:29)
[2019-05-12] MEDS: Ferrous Sulfate 325 MG Tab PO SCH (09:16)
[2019-05-13 06:45] LABS: ANION GAP 9.3; CHLORIDE,CL 107 mmol/L (101-111); SODIUM,NA 136 mmol/L (135-145)
[2019-05-13] MEDS: Lactated Ringers 1,000 ML IV SCH (07:28)
[2019-05-13] MEDS: Ferrous Sulfate 325 MG Tab PO SCH (07:28)
[2019-05-13] MEDS: Heparin Sodium 5,000 Units/ML Vial SUBCUT SCH (09:08)
--- NOTE | 2019-05-13 09:34 | PCM.DCSUM1 ---
Discharge Summary - Hospital Course Free Text/Narrative:: Kelsie is 38 y/o F with no significant past medical history presented to the ED for evaluation of tender swelling to the left side of the face alongside redness. She was admitted for left manoj-orbital/facial cellulitis. She was started on IV Vanco. She responded significantly to treatment. Left facial swelling, redness and tenderness resolved. She was discharged in stable condition with plan to follow up with PCP. She was discharged on PO clindamycin and was advised to keep follow up appointment . She verbalized understanding. Diagnosis: Stroke: No - Discharge Data Discharge Date: 05/13/19 Discharge Disposition: Home, Self-Care 01 Condition: Stable - Referral to Home Health Primary Care Physician: PCP None - Discharge Diagnosis/Problem(s) (1) Cellulitis of external cheek, left SNOMED Code(s): 62239645 ICD Code: L03.211 - CELLULITIS OF FACE Status: Acute Current Visit: Yes (2) Cellulitis, face SNOMED Code(s): 000283335 ICD Code: L03.211 - CELLULITIS OF FACE Status: Acute Priority: High Current Visit: No (3) Periorbital cellulitis of left eye SNOMED Code(s): 618322442 ICD Code: L03.213 - PERIORBITAL CELLULITIS Status: Acute Current Visit: No - Patient Instructions Diet: Regular Diet as Tolerated Activity: As Tolerated Driving: May Drive Today Showering/Bathing: May Shower Notify Provider of: Fever, Increased Pain, Swelling and Redness, Nausea and/or Vomiting - Discharge Plan *PRESCRIPTION DRUG MONITORING PROGRAM REVIEWED*: No *COPY OF PRESCRIPTION DRUG MONITORING REPORT IN PATIENT WILLIAMS: No Prescriptions/Med Rec: Clindamycin HCl 300 mg PO Q6H #28 capsule Ferrous Sulfate 325 mg PO WITHBREAKFAST #30 tablet Home Medications: Home Meds Acetaminophen [Tylenol] 650 mg PO Q4H PRN tablet 01/10/19 [Rx] Clindamycin HCl 300 mg PO Q6H #28 capsule 05/13/19 [Rx] Ferrous Sulfate 325 mg PO WITHBREAKFAST #30 tablet 05/13/19 [Rx] Forms: ED Department Discharge Referrals: PCP,None [Primary Care Provider] - - Discharge Summary/Plan Comment DC Time >30 min.: Yes - Patient Data Vitals - Most Recent: Last Vital Signs Temp 97.6 F 05/13/19 07:46 Pulse 64 05/13/19 07:46 Resp 16 05/13/19 07:46 BP 92/58 L 05/13/19 07:46 Pulse Ox 96 05/13/19 07:46 Weight - Most Recent: 156 lb 1 oz I&O - Last 24 hours: Intake & Output 05/12/19 05/13/19 05/13/19 22:59 06:59 14:59 Intake Total 1900 520 Balance 1900 520 Lab Results - Last 24 hrs: Laboratory Results - last 24 hr 05/12/19 05/13/19 05/13/19 Range/Units 09:35 06:15 06:15 WBC 6.5 (5.0-10.0) 10^3/uL RBC 4.03 L (4.2-5.4) 10^6/uL Hgb 9.6 L (12.0-16.0) g/dL Hct 30.8 L (37.0-47.0) % MCV 76.4 L (80-100) fL MCH 23.8 L (27.0-34.0) pg MCHC 31.2 L (33.0-35.0) g/dL Plt Count 218 (150-450) 10^3/uL Sodium 136 (135-145) mmol/L Potassium 4.3 (3.6-5.0) mmol/L Chloride 107 (101-111) mmol/L Carbon Dioxide 24.0 (21.0-31.0) mmol/L Anion Gap 9.3 BUN 9 (7-18) mg/dL Creatinine 0.5 L (0.6-1.3) mg/dL Est Cr Clr Drug Dosing 148.35 mL/min Estimated GFR (MDRD) > 60 Glucose 91 (74-105) mg/dL Calcium 8.5 (8.4-10.2) mg/dl Vancomycin Trough 9.5 L (10-15) ug/ml Med Orders - Current: Current Medications Acetaminophen (Tylenol) 650 mg PO Q4H PRN PRN Reason: Pain (Mild 1-3)/fever Last Admin: 05/11/19 08:17 Dose: 650 mg Docusate Sodium (Colace) 100 mg PO BID PRN PRN Reason: Constipation Ferrous Sulfate (Ferrous Sulfate) 325 mg PO WITHBREAKFAST [facility] Last Admin: 05/13/19 07:28 Dose: 325 mg Heparin Sodium (Porcine) (Heparin Sodium) 5,000 units SUBCUT Q12HR [facility] Last Admin: 05/13/19 09:08 Dose: Not Given Lactated Ringer's (Ringers, Lactated) 1,000 mls @ 100 mls/hr IV ASDIRECTED [facility] Last Admin: 05/13/19 07:28 Dose: 100 mls/hr Vancomycin HCl 1.25 gm/ Sodium (Chloride) 250 mls @ 166.667 mls/hr IV Q8H [facility] Last Admin: 05/13/19 02:15 Dose: 166 mls/hr Magnesium Hydroxide (Milk Of Magnesia) 30 ml PO Q12H PRN PRN Reason: Constipation Ondansetron HCl (Zofran) 4 mg IVPUSH Q6H PRN PRN Reason: Nausea/Vomiting Oxycodone/Acetaminophen (Percocet 325-5 Mg) 1 tab PO Q6H PRN PRN Reason: Pain (moderate 4-6) Last Admin: 05/11/19 03:55 Dose: 1 tab Vancomycin HCl (Pharmacy To Dose - Vancomycin) 1 dose .XX ASDIRECTED [facility] Discontinued Medications Clindamycin Phosphate 600 mg/ (Sodium Chloride) 104 mls @ 200 mls/hr IV ONETIME ONE Stop: 05/11/19 00:29 Last Admin: 05/11/19 00:13 Dose: 200 mls/hr Sodium Chloride (Normal Saline) 1,000 mls @ 999 mls/hr IV .BOLUS ONE Stop: 05/11/19 01:55 Last Admin: 05/11/19 01:08 Dose: 999 mls/hr Clindamycin Phosphate 600 mg/ (Sodium Chloride) 104 mls @ 200 mls/hr IV Q8H [facility] Last Admin: 05/11/19 08:15 Dose: 200 mls/hr Vancomycin HCl 1 gm/ Sodium (Chloride) 250 mls @ 166.667 mls/hr IV Q8H [facility] Last Admin: 05/12/19 11:05 Dose: Not Given Ketorolac Tromethamine (Toradol) 30 mg IVPUSH ONETIME ONE Stop: 05/10/19 23:56 Last Admin: 05/11/19 00:11 Dose: 30 mg
== END 2019-05-13 12:15 | disposition home or self-care (01) ==
LOC: DL.ED 22:54 → DL.MS 05-11 00:24
PROVIDERS: ADMIT Student in an Organized Health Care Education/Training Program; ATTEND Student in an Organized Health Care Education/Training Program
DX: L03.211 Cellulitis of face (principal); L03.213 Periorbital cellulitis; Z88.0 Allergy status to penicillin; Z88.2 Allergy status to sulfonamides
CPT/HCPCS: 36415; 80048; 80202; 85025; 85027; 96361; 96365; 96366; 96367; 96375; 96376; 99284; 99284-25; A9270-GY; G0378; J1885; J3370; J3490; J7030; J7050; J7120

== ENCOUNTER 2020-06-18 03:02 | Emergency (ER) | payer SELFPAY ==
[2020-06-18] MEDS ORDERED: WATER IV ONE ×2 (03:48)
[2020-06-18] MEDS ORDERED: VANCOMYCIN IV ONE ×2 (03:48)
[2020-06-18] MEDS ORDERED: DEXTROSE 5% IV ONE ×2 (03:48)
--- NOTE | 2020-06-18 03:53 | EDM.PDOC ---
ED HPI GENERAL MEDICAL PROBLEM - General Chief Complaint: Skin Complaint Stated Complaint: SUNBURN ON LEGS, ANKLES SWOLLEN AND IN PAIN Time Seen by Provider: 06/18/20 03:35 Source of Information: Reports: Patient, RN, RN Notes Reviewed History Limitations: Reports: No Limitations - History of Present Illness INITIAL COMMENTS - FREE TEXT/NARRATIVE: 39-year-old female presents to the ER with complaints of bilateral lower extremity pain. Patient reports that 2 days ago, she was in [place] and had a sunburn. She reports that sunburn on her bilateral lower extremities became m ore swollen and painful. The redness and warmth has also increased. She reports intermittent fevers but no chills. She has not tried anything for symptoms. She is able to ambulate at this time. She returned home from [place] about 5 hours prior to this ER visit and states that the pain in her lower extremities is getting worse. She denies any shortness of breath, chest pain, palpitations, nausea, vomiting, or any abdominal issues at this time. Bilateral Leg Pain Score (Numeric/FACES): 8 - Related Data Allergies Allergy/AdvReac Type Severity Reaction Status Date / Time amoxicillin Allergy Other Verified 05/10/19 12:58 Sulfa (Sulfonamide Allergy Swelling Verified 05/10/19 12:58 Antibiotics) Home Meds: Home Meds Acetaminophen [Tylenol] 650 mg PO Q4H PRN tablet 01/10/19 [Rx] Ferrous Sulfate 325 mg PO WITHBREAKFAST #30 tablet 05/13/19 [Rx] Ibuprofen [Motrin] 600 mg PO Q6H PRN 06/18/20 [History] Past Medical History - Past Health History Medical/Surgical History: Denies Medical/Surgical History HEENT History: Reports: Other (See Below) Other HEENT History: right facial swelling Cardiovascular History: Reports: None Respiratory History: Reports: None Gastrointestinal History: Reports: None Genitourinary History: Reports: Other (See Below) Other Genitourinary History: Pt reports "a kidney issue" when she was a kid. CAT DOG OR OTHER PET GROOMER History: Reports: Other (See Below) Other CAT DOG OR OTHER PET GROOMER History: Excessive vaginal bleeding leading to anemia. Musculoskeletal History: Reports: None Neurological History: Reports: None Psychiatric History: Reports: None Endocrine/Metabolic History: Reports: None Hematologic History: Reports: Anemia Immunologic History: Reports: None Oncologic (Cancer) History: Reports: None Dermatologic History: Reports: Cellulitis - Infectious Disease History Infectious Disease History: Reports: None - Past Surgical History Head Surgeries/Procedures: Reports: None Social & Family History - Family History Family Medical History: No Pertinent Family History - Tobacco Use Tobacco Use Status *Q: Current Every Day Tobacco User Years of Tobacco use: 20 Packs/Tins Daily: 0.5 - Caffeine Use Caffeine Use: Reports: Energy Drinks Caffeine Use Comment: 2 Herbalife teas daily. - Recreational Drug Use Recreational Drug Use: No ED ROS GENERAL - Review of Systems Review Of Systems: Comprehensive ROS is negative, except as noted in HPI. ED EXAM, SKIN/RASH Exam: See Below Exam Limited By: No Limitations General Appearance: Alert, Mild Distress Nose: Normal Inspection, Normal Mucosa, No Blood Throat/Mouth: Normal Inspection, Normal Oropharynx Head: Atraumatic, Normocephalic Respiratory/Chest: No Respiratory Distress, Lungs Clear, Normal Breath Sounds, No Accessory Muscle Use, Chest Non-Tender Cardiovascular: Normal Peripheral Pulses, Regular Rate, Rhythm, No Edema, No Gallop, No JVD, No Murmur, No Rub Peripheral Pulses: 2+: Posterior Tibial (L), Posterior Tibial (R), Dorsalis Pedis (L), Dorsalis Pedis (R) GI/Abdominal: Normal Bowel Sounds, Soft, Non-Tender, No Organomegaly, No Distention, No Abnormal Bruit, No Mass (Female) Exam: Deferred Rectal (Female) Exam: Deferred Back Exam: Normal Inspection Extremities: Normal Range of Motion, Normal Capillary Refill, Leg Pain, Increased Warmth, Redness (On bilateral lower extremity especially on the garcia) Neurological: Alert, Oriented Skin: Warm, Intact. No: Lymphangitis Location, Skin: Lower Extremity, Right, Lower Extremity, Left Associated features: Warmth, Tenderness, Swelling. No: Weeping Lymphatic: No Adenopathy Course - Vital Signs Last Recorded V/S: Last Vital Signs Temp 97.5 F 06/18/20 03:21 Pulse 98 06/18/20 03:21 Resp 17 06/18/20 03:21 BP 111/49 L 06/18/20 03:21 Pulse Ox 100 06/18/20 03:21 - Orders/Labs/Meds Orders: Active Orders 24 hr Category Date Time Status Vancomycin 1.25 gm Med 06/18/20 03:48 Active Dextrose 5% in Water 250 ml IV ONETIME Medication Orders Vancomycin HCl 1.25 gm/ (Dextrose/Water) 250 mls @ 167 mls/hr IV ONETIME ONE Stop: 06/18/20 05:17 Last Admin: 06/18/20 04:03 Dose: 167 mls/hr Documented by: ADAM Meds: Medications Generic Name Dose Route Start Last Admin Trade Name Evangelista PRN Reason Stop Dose Admin Vancomycin HCl 1.25 gm/ 250 mls @ 167 mls/hr 06/18/20 03:48 06/18/20 04:03 Dextrose/Water IV 06/18/20 05:17 167 mls/hr ONETIME ONE Administration - Re-Assessments/Exams Free Text/Narrative Re-Assessment/Exam: Reviewed exam findings with patient and discussed treatment plan. Patient is allergic to penicillins and sulfa drugs. Vancomycin 1.25 g administered with Rx for clindamycin sent home with patient. Encourage compression stockings with elevating feet when sitting or lying down. Ibuprofen Tylenol as needed for discomfort. Follow-up with PCP including next week. Departure - Departure Time of Disposition: 05:14 Disposition: Home, Self-Care 01 Condition: Fair Clinical Impression: Cellulitis Qualifiers: Site of cellulitis: extremity Site of cellulitis of extremity: lower extremity Laterality: unspecified laterality Qualified Code(s): L03.119 - Cellulitis of unspecified part of limb - Discharge Information Instructions: Sunburn, Adult, [id number], Cellulitis, Adult, [id number] Forms: ED Department Discharge Additional Instructions: Encourage compression stockings with elevating feet when sitting or lying down. Ibuprofen or Tylenol as needed for discomfort. Follow-up with PCP including next week or return to ER if symptoms worsen. Sepsis Event Note (ED) - Evaluation Sepsis Screening Result: No Definite Risk - Focused Exam Vital Signs: Vital Signs Temp Pulse Resp BP Pulse Ox 06/18/20 03:21 97.5 F 98 17 111/49 L 100 - My Orders Last 24 Hours: My Active Orders 06/18/20 03:48 Vancomycin 1.25 gm Dextrose 5% in Water 250 ml IV ONETIME - Assessment/Plan Last 24 Hours: My Active Orders 06/18/20 03:48 Vancomycin 1.25 gm Dextrose 5% in Water 250 ml IV ONETIME
== END 2020-06-18 05:44 | disposition home or self-care (01) ==
LOC: DL.ED 03:02
DX: L03.115 Cellulitis of right lower limb (principal); L03.116 Cellulitis of left lower limb; Z72.0 Tobacco use; Z88.0 Allergy status to penicillin; Z88.2 Allergy status to sulfonamides
CPT/HCPCS: 96365; 96366; 99283; J3370; J7060

== ENCOUNTER 2021-03-26 22:17 | Emergency (ER) | payer SELFPAY | END 2021-03-27 01:19 | disposition left against medical advice (07) | LOC: DL.ED 22:17 | DX: Z53.21 Procedure and treatment not carried out due to patient leaving prior to being seen by health care provider (principal) ==

== ENCOUNTER 2021-08-30 13:53 | Emergency (ER) | payer SELFPAY ==
[2021-08-30 15:16] LABS: ANION GAP 14.1 mEq/L (7-13); CHLORIDE,CL 106 mmol/L (98-107); SODIUM,NA 141 mmol/L (136-145)
[2021-08-30 15:19] LABS: ESTIMATED GFR > 60
== END 2021-08-30 15:56 | disposition home or self-care (01) ==
LOC: DL.ED 13:53
DX: D50.0 Iron deficiency anemia secondary to blood loss (chronic) (principal); F17.210 Nicotine dependence, cigarettes, uncomplicated; Z88.0 Allergy status to penicillin; Z88.2 Allergy status to sulfonamides
CPT/HCPCS: 36415; 80053; 80307; 83605; 83735; 84443; 85025; 86140; 99284

== ENCOUNTER 2023-12-06 17:16 | Emergency (ER) | payer SELFPAY ==
[2023-12-06 18:24] LABS: BASOPHILS PERCENT AUTO 0.4 % (0.0-1.0); EOSINOPHILS PERCENT AUTO 0.5 % (1.0-3.0); HEMATOCRIT 44.5 % (37.0-47.0); HEMOGLOBIN 14.6 g/dL (12.0-16.0); LYMPHOCYTES PERCENT AUTO 23.5 % (20.5-50.1); MEAN CORPUSCULAR HGB CONC 32.8 g/dL (33.0-35.0); MEAN CORPUSCULAR VOLUME 82.3 fL (80-100); MONOCYTES PERCENT AUTO 6.5 % (2-8); NEUTROPHILS PERCENT AUTO 69.1 % (42.2-75.2); PLATELET COUNT,PLT 213 10^3/uL (150-450); RED BLOOD CELL COUNT 5.41 10^6/uL (4.2-5.4); WHITE BLOOD CELL COUNT,WBC 8.1 10^3/uL (5.0-10.0)
[2023-12-06] MEDS: Ondansetron 4 MG/2 ML SDV IVPUSH ONE (18:32)
[2023-12-06] MEDS: Ketorolac 30 MG/ML SDV IVPUSH ONE (18:34)
[2023-12-06] MEDS: Sodium Chloride 0.9% 1,000 ML IV ONE (18:36)
[2023-12-06 18:50] LABS: APPEARANCE,URINE CLEAR (CLEAR); BILIRUBIN,URINE NEGATIVE (NEGATIVE); COLOR,URINE YELLOW (YELLOW); GLUCOSE,URINE NEGATIVE (NEGATIVE); KETONES,URINE NEGATIVE (NEGATIVE); LEUKOCYTE ESTERASE,URINE NEGATIVE (NEGATIVE); NITRITE,URINE NEGATIVE (NEGATIVE); OCCULT BLOOD,URINE NEGATIVE (NEGATIVE); PH,URINE 6.5 (5.0-9.0); PROTEIN,URINE NEGATIVE (NEGATIVE); UROBILINOGEN,URINE 0.2 mg/dL (0.2-1.0)
[2023-12-06 18:55] LABS: LACTIC ACID 0.7 mmol/L (0.4-2.0)
[2023-12-06 19:01] LABS: ALANINE AMINOTRANSFERASE,ALT 36 U/L (14-59); ALBUMIN 3.9 g/dL (3.4-5.0); ALKALINE PHOSPHATASE 78 U/L (46-116); ANION GAP 12.9 mEq/L (7-13); ASPARTATE AMNIOTRANSFERASE,AST 83 U/L (15-37); BILIRUBIN TOTAL 0.6 mg/dL (0.2-1.0); BLOOD UREA NITROGEN,BUN 6 mg/dL (7-18); BUN/CREATININE RATIO 7.4 (No establ ref range); CALCIUM 9.5 mg/dL (8.5-10.1); CARBON DIOXIDE,CO2 27 mmol/L (21-32); CHLORIDE,CL 105 mmol/L (98-107); CREATININE 0.81 mg/dL (0.55-1.02); GLUCOSE RANDOM 93 mg/dL (70-99); LIPASE 50 U/L (16-77); MAGNESIUM 1.8 mg/dL (1.8-2.4); POTASSIUM,K 3.9 mmol/L (3.5-5.1); PROTEIN TOTAL,TP 7.7 g/dL (6.4-8.2); SODIUM,NA 141 mmol/L (136-145)
[2023-12-06 19:02] LABS: ESTIMATED GFR 92 mL/min (>=60)
== END 2023-12-06 19:42 | disposition home or self-care (01) ==
LOC: DL.ED 17:16
DX: G43.909 Migraine, unspecified, not intractable, without status migrainosus (principal); M79.10 Myalgia, unspecified site; Z88.0 Allergy status to penicillin; Z88.2 Allergy status to sulfonamides
CPT/HCPCS: 36415; 71045; 80053; 81003; 81025; 83605; 83690; 83735; 85025; 87804; 96361; 96374; 96375; 99283; 99284-25; J1885; J2405; J7030; U0002